=== PATIENT | female | born 1980 | race Caucasian/White ===

== ENCOUNTER 2020-10-15 10:05 | Emergency (ER) | payer OTHER, SELFPAY ==
[2020-10-15 10:06] VITALS: BP 136/81; PULSE 86; RESP 16; TEMP 36.8; O2SAT 98; BMI 39.6
--- NOTE | 2020-10-15 10:30 | VDLE_ITS ---
Reason For Study: Leg Swelling, Petechiae RIGHT LEFT GSV is normal. GSV is normal. CFV is compressible, spontaneous, phasic, CFV is compressible, spontaneous, phasic, competent and demonstrates normal competent, and demonstrates normal augmentation. augmentation. FV is compressible, spontaneous, phasic, FV is compressible, spontaneous, phasic, competent and demonstrates normal competent and demonstrates normal augmentation. augmentation. POP V is compressible, spontaneous, phasic, POP V is compressible, spontaneous, phasic, competent and demonstrates normal competent and demonstrates normal augmentation. augmentation. T/P Trunk is compressible. T/P Trunk is compressible. PTV is compressible. PTV is compressible. RT PerV is compressible. LT PerV is compressible. Procedure Exam performed portable in ED. This is a venous duplex using B-mode, color flow and spectral Doppler. A preliminary report was called and/or faxed to Dr. Powell. VL/Venous Duplex US - Ozzie Extrem Interpretation Summary No evidence for acute deep venous thrombosis bilateral lower extremities with p atent and compressible bilateral great saphenous veins. Ordering Physician: Ferny Powell Referring Physician: Nicanor Cannon Performed By: Janie Calderon RDCS, RVT
--- NOTE | 2020-10-15 10:37 | EDS_ITS ---
HPI History of Present Illness Chief Complaint: Rash Informant: patient Narrative Narrative: Patient is a 40-year-old previously healthy female who presents to the emergency department for painful rash to bilateral lower extremities. She states that her symptoms initially started yesterday whenever she developed hives of her arms and legs. She did going to an outside emergency department and was diagnosed with anaphylaxis as she felt her throat was swelling. She was given epinephrine and placed on prednisone. Her symptoms had completely resolved prior to being discharged from the hospital. This morning whenever she woke up she noticed the red bumps going up her legs. They are tender to the touch. She has never had this before. She feels like both of her legs are swollen and is difficult to put her shoes on. She denies any throat swelling now. No chest pain or shortness of breath. No abdominal pain. No change in bowel movements. No urinary symptoms. She was diagnosed with a UTI yesterday and put on Macrobid. She took her second dose this morning. She also took her prednisone this morning. Patient denies any headache or stiff neck. No back pain. She denies any new exposures. She did previously have poison abundio on the leg approximately 1 week ago. PFSH [facility] Home Medications bupropion HCl 150 mg PO BID 08/23/16 [History Last Taken Unknown] topiramate 25 mg DAILY 08/23/16 [History Last Taken Unknown] Allergy/AdvReac Type Severity Reaction Status Date / Time No Known Allergies Allergy Verified 10/15/20 10:09 Surgical History (Updated 10/15/20 @ 10:49 by Taisha Reeves) History of appendectomy History of tonsillectomy History of tonsillectomy and adenoidectomy Social History Smoking Status: Never smoker ROS ROS ED Constitutional Constitutional ED: Denies chills or fever(s) Eyes Eyes: Denies change in vision ENT ENT ED: Denies epistaxis or rhinorrhea Cardiovascular Cardiovascular: Denies chest pain or palpitations Respiratory/Chest Respiratory/Chest: Denies cough, dyspnea or dyspnea on exertion Gastrointestinal Gastrointestinal: Denies abdominal pain, diarrhea, nausea or vomiting Genitourinary Genitourinary ED: Denies dysuria, hematuria or urinary frequency Musculoskeletal Musculoskeletal: Denies back pain or neck pain Integumentary Reports rash Neurologic Neurologic: Denies dizziness, headache(s) or weakness EXAM Physical Exam Const Vital Signs: 10/15/20 10:06 Temperature 98.3 F Temperature Source Temporal Pulse Rate 86 Respiratory Rate 16 Blood Pressure 136/81 H Blood Pressure Mean 99 Pulse Ox 98 Oxygen Delivery Method Room Air Positive well nourished and well developed General Appearance ED: well developed and NAD HEENT Reports normocephalic, head/scalp atraumatic and moist mucous membranes Eyes PERRL and EOMs intact bilaterally Neck supple General: Negative for tenderness Chest Wall inspection of chest normal Resp normal respiratory effort and clear to auscultation bilaterally Auscultation: Negative for rales, rhonchi or wheezes Cardio regular rate, regular rhythm and no murmurs GI normal to inspection, nondistended, normoactive bowel sounds and non-tender Palpation: soft; Negative for guarding or rebound tenderness present Back/Spine no CVA tenderness Extremity normal to inspection General Extremety ED: Negative for edema or tenderness General Extremity: Negative for edema Neuro oriented x3, CN's II-XII intact bilaterally and no sensory deficits noted Sensorium / Orientation: alert Motor Exam: strength 5/5 throughout Psych mental status grossly normal Skin Skin Narrative: There is erythematous, macular rash extending up the legs. This does look like petechiae. Is nonblanchable. Is tender to the touch. It does involve the arches of the feet bilaterally but not the soles of the feet. The rash does not extend past her pelvis. No oral mucous membrane involvement. MDM MDM MDM Narrative Medical decision making narrative: Patient presents to the ED for painful rash of lower extremities bilaterally. She was diagnosed with anaphylaxis yesterday as she had hives. She was treated with epinephrine yesterday and placed on prednisone. On arrival to the emergency department vital signs within normal limits. She is in no acute distress. Will check basic lab work along with ultrasounds of the lower extremities. Patient's lab work did come back with an elevated white blood cell count but she is currently on a steroid and this likely explains it. Her CRP was minimally elevated and her ESR is within normal limits. Her platelets are within normal limits. She otherwise has remained stable throughout ED stay. No progression of the rash. Ultrasound not show any evidence of clot. 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 She is to continue on her prednisone. I did give her vascular referral. Return precautions are reviewed with her including any developing systemic symptoms, worsening of the rash. This time of low concern for sepsis, meningitis. At this time she is discharged in stable condition. All questions were answered. Lab Data Labs: Laboratory Results - last 24 hr 10/15/20 10/15/20 10/15/20 10:40 10:45 10:45 WBC 18.9 H RBC 4.81 Hgb 14.5 Hct 44.2 MCV 91.9 MCH 30.1 MCHC 32.8 RDW Std Deviation 42.5 RDW Coeff of Allie 12.6 Plt Count 416 MPV 9.6 Immature Gran % (Auto) 0.800 Neut % (Auto) 85.3 H Lymph % (Auto) 6.6 L Adams % (Auto) 3.1 Eos % (Auto) 4.0 Baso % (Auto) 0.2 Absolute Neuts (auto) 16.1 H Absolute Lymphs (auto) 1.24 Nucleated RBC % 0 Differential Comment SCANNED Platelet Estimate ADEQUATE Plt Morphology Comment LARGE ESR 6 Sodium 137 Potassium 3.9 Chloride 107 Carbon Dioxide 24.0 Anion Gap 6 BUN 17 Creatinine 0.85 Estim Creat Clear Calc 63.83 Est GFR (MDRD) Af Amer 95 Est GFR (MDRD) Non-Af 79 BUN/Creatinine Ratio 20.0 Glucose 118 H Calcium 9.3 Total Bilirubin 0.20 AST 14 L ALT 19 Alkaline Phosphatase 83 Total Creatine Kinase C-React Prot Ext Range 7.02 H Total Protein 7.7 Albumin 3.9 Globulin 3.8 Albumin/Globulin Ratio 1.0 Urine Color Yellow Urine Clarity Cloudy Urine pH 5.0 Ur Specific [place] 1.015 Urine Protein Negative Urine Glucose (UA) Normal Urine Ketones 5 H Urine Occult Blood Negative Urine Nitrite Negative Urine Bilirubin Negative Urine Urobilinogen Normal Ur Leukocyte Esterase 500 H Urine RBC 0 SEEN Urine WBC 0-5 SEEN Ur Squamous Epith Cells 5-10 SEEN Urine Bacteria 1+ Urine Mucus 0 SEEN 10/15/20 10:45 WBC RBC Hgb Hct MCV MCH MCHC RDW Std Deviation RDW Coeff of Allie Plt Count MPV Immature Gran % (Auto) Neut % (Auto) Lymph % (Auto) Adams % (Auto) Eos % (Auto) Baso % (Auto) Absolute Neuts (auto) Absolute Lymphs (auto) Nucleated RBC % Differential Comment Platelet Estimate Plt Morphology Comment ESR Sodium Potassium Chloride Carbon Dioxide Anion Gap BUN Creatinine Estim Creat Clear Calc Est GFR (MDRD) Af Amer Est GFR (MDRD) Non-Af BUN/Creatinine Ratio Glucose Calcium Total Bilirubin AST ALT Alkaline Phosphatase Total Creatine Kinase 84 C-React Prot Ext Range Total Protein Albumin Globulin Albumin/Globulin Ratio Urine Color Urine Clarity Urine pH Ur Specific [place] Urine Protein Urine Glucose (UA) Urine Ketones Urine Occult Blood Urine Nitrite Urine Bilirubin Urine Urobilinogen Ur Leukocyte Esterase Urine RBC Urine WBC Ur Squamous Epith Cells Urine Bacteria Urine Mucus Discharge Plan Triage Chief Complaint: Rash ED Provider: Ferny Powell Dx/Rx/DC Orders Clinical Impression: Rash Instructions: Understanding Vasculitis Prescriptions: No Action topiramate 25 MG tablet 25 mg DAILY RF: 0 bupropion HCl 100 MG tablet 150 mg PO BID RF: 0 Primary Care Provider: Durga Cannon Referrals: Pawan Mccann MD [STAFF PHYSICIAN] - 2 Days Durga Cannon MD [Primary Care Provider] - Disposition Disposition: Home, Self Care Discharge Date/Time: 10/15/20 12:47
[2020-10-15 10:54] LABS: Mucous, Urine 0 SEEN /hpf (<or=2+); Red Blood Cells-Urine 0 SEEN /hpf (0-5)
[2020-10-15 10:59] LABS: Color, Urine Yellow (Yellow); Glucose, Dipstick Normal (Normal); Ketone-Dipstick 5 mg/dl (Negative); Leukocyte Esterase-Dipstick 500 /ul (Negative); Nitrite-Dipstick Negative (Negative); Occult Blood-Urine Negative /ul (Negative); Protein-Dipstick Negative (Negative); Specific Gravity, Urine 1.015 (1.002-1.030); Urine Bilirubin Dipstick Negative (Negative); Urine Clarity Cloudy (Clear); Urine Urobilinogen Normal (Normal)
[2020-10-15 11:04] LABS: Absolute Lymphocyte Count 1.24 X10^3/uL (0.83-4.51); Absolute Neutrophil Count 16.1 X10^3/uL (2.0-7.7); Basophil# 0.03 X10^3/uL; Basophil% 0.2 % (0-1); Eosinophil# 0.76 X10^3/uL; Hematocrit 44.2 % (37-47); Hemoglobin 14.5 g/dL (12.0-15.0); Lymphocyte # 1.24 X10^3/ul (0.83-4.51); Lymphocyte % 6.6 % (19-41); Mean Corp Hgb Conc 32.8 g/dL (32-36); Mean Corpuscular Hgb 30.1 pg (27.0-32.0); Mean Corpuscular Volume 91.9 fL (81-99); Mean Platelet Vol. 9.6 fl (6.2-12.0); Monocyte# 0.58 X10^3/uL; Monocyte% 3.1 % (0-10); NRBC Flagged by Analyzer 0 % (0-5); Neutrophil # 16.13 X10^3/uL (2.7-7.7); Neutrophil % 85.3 % (47-70); POSITIVE MORPHOLOGY YES; Platelet Count 416 K/mm3 (150-450); RBC Distribution Width CV 12.6 % (11.6-14.6); RBC Distribution Width SD 42.5 fl (35.1-43.9); Red Blood Count 4.81 M/mm3 (4.2-5.4); White Blood Count 18.9 K/mm3 (4.4-11.0)
[2020-10-15 11:05] LABS: Bacteria 1+ /hpf (None Seen); Squamous Epithelial Cells - UA 5-10 SEEN /hpf (5-10); White Blood Cells 0-5 SEEN /hpf (0-5)
[2020-10-15 11:06] LABS: Differential Indicated SCAN CRITERIA MET
[2020-10-15 11:10] LABS: AST(SGOT) 14 U/L (15-37); Alanine Aminotransfer ALT/SGPT 19 U/L (13-56); Albumin, Serum 3.9 g/dL (3.2-5.0); Alkaline Phosphatase 83 U/L (45-117); Anion Gap 6 (5-15); BUN 17 mg/dL (7-18); CRP 7.02 mg/L (0.0-3.0); Calcium,Total 9.3 mg/dL (8.5-10.1); Chloride 107 mmol/L (98-107); Creatinine, Serum 0.85 mg/dL (0.55-1.02); EST Glomerular Filtration Rate 79 mL/min (>60); Est Glom Filt Rate - Afr Amer 95 mL/min (>60); Estimated Creatinine Clearance 63.83 ml/min; Globulin 3.8 g/dL (2.2-4.2); Glucose 118 mg/dL (74-106); Potassium 3.9 mmol/L (3.5-5.1); Protein, Total 7.7 g/dL (6.4-8.2); Sodium Level 137 mmol/L (136-145)
[2020-10-15 11:12] LABS: Erythrocyte Sedimentation Rate 6 mm/hr (0-30)
[2020-10-15 11:20] LABS: CPK Total, Creatine Kinase 84 U/L (26-192)
[2020-10-15 11:26] LABS: Platelet Estimate ADEQUATE (ADEQ); Platelet Morphology LARGE
[2020-10-15 11:27] LABS: Differential Comment SCANNED
== END 2020-10-15 12:47 | disposition home or self-care (01) ==
PROVIDERS: Emergency Provider Emergency Medicine; PCP Family Medicine
DX: R21 Rash and other nonspecific skin eruption (principal); M79.604 Pain in right leg; M79.605 Pain in left leg; Z79.899 Other long term (current) drug therapy
CPT/HCPCS: 80053; 81001; 82550; 85025; 85652; 86140; 93970; 99282

== ENCOUNTER 2020-11-12 19:12 | Emergency (ER) | payer OTHER, SELFPAY ==
[2020-11-12 19:14] VITALS: BP 136/79; PULSE 109; RESP 16; TEMP 36.6; O2SAT 100; BMI 40.6
--- NOTE | 2020-11-12 20:00 | ED.VIS.BACK ---
HPI History of Present Illness Chief Complaint: Back Informant: patient Narrative Narrative: Patient has left lower back pain radiating down the buttock and a little bit down her leg. She occasionally has a little mild tingling feeling in her left small toe. Yesterday morning she jumped out of her truck and got immediate sharp back pain. It then got a little bit better. But as she started working the pain slowly increased. It sore to move or twist. She has no bowel or bladder dysfunction. She has no fevers chills or recent infections. She was treated with a nonspecific vasculitis with steroids about a month ago. She is not currently on them. She has no history of back surgeries. Staying still makes her symptoms better. Motion twisting or palpation makes it worse. PFSH PFSH Home Medications bupropion HCl 150 mg PO BID 08/23/16 [History Last Taken Unknown] topiramate 25 mg DAILY 08/23/16 [History Last Taken Unknown] oxycodone-acetaminophen [Percocet] 1 tab PO Q6H PRN 3 Days #10 tab 11/12/20 [Rx Last Taken Unknown] prednisone 60 mg PO DAILY #15 tab 11/12/20 [Rx Last Taken Unknown] Allergy/AdvReac Type Severity Reaction Status Date / Time No Known Allergies Allergy Verified 11/12/20 19:14 Surgical History History of appendectomy History of tonsillectomy History of tonsillectomy and adenoidectomy Social History Smoking Status: Never smoker ROS ROS ED Constitutional Constitutional ED: Denies chills, fever(s) or sweats Eyes Eyes: Denies blurry vision Cardiovascular Cardiovascular: Denies chest pain or palpitations Respiratory/Chest Respiratory/Chest: Denies dyspnea or sputum Gastrointestinal Gastrointestinal: Reports other Details: No incontinence. ; Denies abdominal pain, constipation, diarrhea, melena, nausea or vomiting Genitourinary Genitourinary ED: Denies dysuria, hematuria or urinary frequency Musculoskeletal Musculoskeletal: Reports back pain; Denies arthralgias, myalgias or neck pain Integumentary Denies rash Neurologic Neurologic: Reports paresthesias; Denies headache(s) or weakness Endocrine Endocrinology: Denies polydipsia or polyuria Hematologic/Lymphatic Hematologic/Lymphatic: Denies easy bleeding or easy bruising EXAM Physical Exam Const Vital Signs: 11/12/20 19:14 Temperature 98 F Temperature Source Temporal Pulse Rate 109 H Respiratory Rate 16 Blood Pressure 136/79 H Blood Pressure Mean 98 Pulse Ox 100 Oxygen Delivery Method Room Air Positive well nourished and well developed General Appearance ED: well developed and NAD HEENT Negative for trauma Eyes EOMs intact bilaterally Resp normal respiratory effort and clear to auscultation bilaterally Cardio regular rate and regular rhythm GI normal to inspection, nondistended, normoactive bowel sounds, soft to palpation and non-tender Back/Spine normal to inspection Back/Spine Narrative: Patient does not have tenderness in the actual back. But when you get the SI joint and sciatic notch. She has clear tenderness on the left. No swelling down the legs. Her strength is still intact. Reflexes are still intact. She states the sensation of her small toes feels different but it is still intact. Extremity normal to inspection and no clubbing, cyanosis or edema General Extremety ED: Negative for edema or tenderness General Extremity: Negative for edema Neuro oriented x3 Neuro Narrative: See above Sensorium / Orientation: alert Psych mental status grossly normal Skin no rashes or lesions noted and no wounds MDM MDM MDM Narrative Medical decision making narrative: Patient's exam and history is consistent with an S1 nerve root compression on the left side. But she has no bowel or bladder dysfunction. She has no weakness. Conservative treatment is still appropriate initially. Although this started when she jumped out of her truck and landed on her feet, the pain then resolved. It came back during the day when she was working. I do not think x-rays are going to show because of this. I will get her on meds for pain. I will also use a short course of steroids. She has been using Flexeril and Motrin that she has at home and is not helping. I did online prescribing report. She has a single prescription for narcotic cough medicine back in 2019. We discussed reasons to return that would include weakness, worsening pain, bowel or bladder dysfunction, rashes or any other concerns. Discharge Plan Triage Chief Complaint: Back ED Provider: Rakan Gold Dx/Rx/DC Orders Clinical Impression: Lumbosacral radiculopathy at S1 Instructions: ED Sciatica Prescriptions: New oxycodone-acetaminophen [Percocet] 5-325 mg tablet 1 tab PO Q6H PRN (Reason: pain) 3 Days Qty: 10 RF: 0 prednisone 20 mg tablet 60 mg PO DAILY Qty: 15 RF: 0 No Action topiramate 25 MG tablet 25 mg DAILY RF: 0 bupropion HCl 100 MG tablet 150 mg PO BID RF: 0 Primary Care Provider: Durga Cannon Referrals: Durga Cannon MD [Primary Care Provider] - 3-5 Days Disposition Disposition: Home, Self Care
[2020-11-12] MEDS: Ketorolac 30 MG/ML Syringe IM (20:10)
== END 2020-11-12 20:36 | disposition home or self-care (01) ==
PROVIDERS: Emergency Provider Emergency Medicine; PCP Family Medicine
DX: M54.17 Radiculopathy, lumbosacral region (principal)
CPT/HCPCS: 96372; 99282

== ENCOUNTER 2021-07-01 12:33 | Emergency (ER) | payer MEDICAID, SELFPAY ==
[2021-07-01 12:34] VITALS: BP 135/88; PULSE 88; RESP 16; TEMP 36.2; O2SAT 99; BMI 41.8
--- NOTE | 2021-07-01 12:43 | ED.VIS.BACK ---
HPI History of Present Illness Chief Complaint: Back Informant: patient Onset/Context/Timing Onset: Yesterday Context: Sudden Onset Injury: fall (Standing position as she was getting out of bed) Timing: Continuous Quality: Sharp Location: Lumbar, Buttock and Left Leg Current Severity: Mild Maximum Severity: Severe Worsened by: improves with Movement, Ambulation, Bending and Lifting Relieved by: Nothing Associated Symptoms Associated Symptoms: Numbness (Entire left lower extremity), Radiation to Left Leg and - (She denies foot drop. Denies buckling of her knees.); Negative for Abdominal Pain, Dysuria, Unable to Ambulate, Unable to Transfer, Urinary Retention, Urinary Incontinence, Constipation and Fecal Incontinence Narrative Narrative: Patient presents because of back pain and numbness of the left lower extremity status post fall. She has history of spinal stenosis. She fell getting a bed yesterday. She has pain that is much worse than normal. Nothing has helped the pain. Movement and different activities make it worse. She denies bowel bladder dysfunction. She denies saddle paresthesia or anesthesia. She complains of pain radiating lateral aspect of the left lower extremity to the knee. This is not in a dermatomal distribution. She denies fever, chills night sweats. She has had no recent procedures of any type. She states she contacted her physician who recommended she come to the emergency part Prior similar symptoms: No Recent Illness/Hospitalization: No PFSH [facility] Medical History (Updated 07/01/21 @ 13:[address] Zachery Lloyd MD) Spinal stenosis Home Medications NK 11/12/20 [History Last Taken Unknown] hydrocodone-acetaminophen 1 tab PO Q6H PRN PRN 3 Days #10 tablet 07/01/21 [Rx Last Taken Unknown] Allergy/AdvReac Type Severity Reaction Status Date / Time latex Allergy Hives Verified 07/01/21 12:36 nicotine [From Nicoderm CQ] Allergy Hives Verified 07/01/21 12:36 Surgical History History of appendectomy History of tonsillectomy History of tonsillectomy and adenoidectomy Social History (Updated 07/01/21 @ 12:[address] Zachery Lloyd MD) household members: spouse Smoking Status: Former smoker substance use type: does not use ROS ROS ED Constitutional Constitutional ED: Denies chills, fever(s), subjective, sweats or weight loss Eyes Eyes: Denies blurry vision, change in vision or diplopia ENT ENT ED: Denies ear pain, rhinorrhea or sore throat Cardiovascular Cardiovascular: Denies chest pain or palpitations Respiratory/Chest Respiratory/Chest: Denies dyspnea or dyspnea on exertion Gastrointestinal Gastrointestinal: Denies abdominal pain, constipation, nausea or vomiting Genitourinary Genitourinary ED: Denies dysuria, hematuria or urinary frequency Musculoskeletal Musculoskeletal: Reports back pain; Denies arthralgias, myalgias or neck pain Integumentary Denies rash Neurologic Neurologic: Reports paresthesias; Denies headache(s) or weakness Endocrine Endocrinology: Denies polydipsia, polyphagia or polyuria Hematologic/Lymphatic Hematologic/Lymphatic: Denies easy bleeding or easy bruising EXAM Physical Exam Const Vital Signs: 07/01/21 12:34 Temperature 97.2 F L Temperature Source Temporal Pulse Rate 88 Respiratory Rate 16 Blood Pressure 135/88 H Blood Pressure Mean 103 Pulse Ox 99 Positive well nourished, well developed and obese General Appearance ED: well developed; Negative for NAD or pallor Nutritional Appearance: obese HEENT Reports TM's clear and moist mucous membranes Negative for trauma or tenderness Tympanic Membrane ED: Yes TM's clear Eyes PERRL and EOMs intact bilaterally General Eye ED: Negative for pale conjunctiva or scleral icterus Neck no lymphadenopathy, supple and no JVD Resp normal respiratory effort and clear to auscultation bilaterally Cardio regular rate, regular rhythm, S1 normal heart sound, S2 normal heart sound and no murmurs GI normal to inspection, nondistended, normoactive bowel sounds, soft to palpation and non-tender GI Narrative: There is no pain no patient of the pelvis. Back/Spine normal to inspection Back/Spine Narrative: There is pain no patient over the L5 spinous process. Straight leg test on the left elicited pain left lower back at 15 degrees. Straight leg test on the right was negative. EHL is intact. Normal sensation over L4-5 dermatome as well as L3 and perianal region. DP and PT pulse are palpable. General Back: Negative for CVA tenderness Cervical Spine: Negative for cervical spine tenderness and Negative for paracervical muscle tenderness Thoracic Spine / Upper Back: Negative for paraspinal muscle tenderness Lumbar Spine / Lower Back: straight leg raise negative bilaterally Extremity normal to inspection and no clubbing, cyanosis or edema General Extremety ED: Negative for edema or tenderness General Extremity: Negative for edema Neuro Deep Tendon Reflexes: Rt Patellar (L4): 3+, Lt Patellar (L4): 3+, Rt Ankle (S1): 3+ and Lt Ankle (S1): 3+ Deep Tendon Reflexes Back: Rt Patellar (L4): 3+, Lt Patellar (L4): 3+, Rt Ankle (S1): 3+ and Lt Ankle (S1): 3+ Plantar Reflex: Downgoing: bilateral Psych mental status grossly normal Skin no rashes or lesions noted and no wounds General Skin Exam: Negative for jaundice or pallor MDM MDM MDM Narrative Medical decision making narrative: Since there is pain of palpation spinous process of L5 after falling patient had continuous pain since fall will obtain LS x-rays to evaluate for fracture. Patient was medicated with Zofran and morphine. Based on history and physical findings presently there is no concern for herniated disc as the cause of her pain. History and physical is not consistent with spinal stenosis as the etiology either. Patient was observed walking back from the restroom. She was not grimacing or in obvious discomfort. Plan is to discharge to home with appropriate home-going instructions. Radiography X-Ray: LS SPine (2 views were obtained. There is minimal degenerative disease noted. There is no evidence of fracture, spondylolisthesis or spondylolisthesis.) and Read by ED Physician ([id number]) Discharge Plan Triage Chief Complaint: Back ED Provider: Zachery Lloyd Dx/Rx/DC Orders Clinical Impression: Contusion of lower back and pelvis, initial encounter, Injury due to fall Instructions: ED Back Contusion Prescriptions: New hydrocodone-acetaminophen [hydrocodone-acetaminophen] 1 TABLET tablet 1 tab PO Q6H PRN PRN (Reason: Pain) 3 Days Qty: 10 RF: 0 No Action NK RF: 0 Primary Care Provider: Durga Cannon Referrals: Durga Cannon MD [Primary Care Provider] - 3-5 Days if not improving Disposition Disposition: Home, Self Care
--- NOTE | 2021-07-01 12:47 | RAD_ITS ---
STUDY: X-RAY - LUMBAR SPINE REASON FOR EXAM: Female, 41 years old. Injury/Pain TECHNIQUE: 2 view(s) of the lumbar spine were obtained. COMPARISON: None FINDINGS: Normal lumbar lordosis. There is no substantial scoliosis. There is a normal alignment of the vertebrae. There is multilevel endplate spondylosis of the lumbar vertebrae. Normal disc space heights. The soft tissue structures are unremarkable. RAD/Lumbar Spine 2 or 3 Views IMPRESSION: 1. No acute fracture or subluxation. 2. Mild diffuse degenerative disc disease. Electronically Signed: Papo Smith MD at 13:17 EST ,
[2021-07-01] MEDS: Morphine 4 MG/ML Syringe IV (13:01)
[2021-07-01] MEDS: Ondansetron 4 MG/2 ML Vial IV (13:01)
== END 2021-07-01 13:34 | disposition home or self-care (01) ==
PROVIDERS: Emergency Provider Emergency Medicine; PCP Family Medicine; Visit Provider Emergency Medicine
DX: S30.0XXA Contusion of lower back and pelvis, initial encounter (principal); E66.9 Obesity, unspecified; Z87.891 Personal history of nicotine dependence; W19.XXXA Unspecified fall, initial encounter
CPT/HCPCS: 72100; 96374; 96375; 99282; A4216; J2405

== ENCOUNTER → 2021-08-31 | Outpatient (CLI) | payer MEDICAID, SELFPAY ==
[2021-09-06 18:19] LABS: HPV Reflexed? NOT INDICATED
== END | disposition home or self-care (01) ==
LOC: LABSPEC 13:44
PROVIDERS: PCP Family Medicine; Visit Provider Obstetrics & Gynecology
DX: Z12.4 Encounter for screening for malignant neoplasm of cervix (principal)
CPT/HCPCS: 88175; G0145

== ENCOUNTER 2022-12-13 12:18 | Emergency (ER) | payer MEDICAID, SELFPAY ==
[2022-12-13 12:19] VITALS: BP 129/77; PULSE 90; RESP 18; TEMP 37.2; O2SAT 100; BMI 40.4
--- NOTE | 2022-12-13 13:32 | EX.ED.DYSGE1 ---
HPI History of Present Illness Chief Complaint: Chest Other Informant: patient Onset/Context/Timing Onset: Days (4) Context: Gradual Onset Timing: Continuous Quality: Sharp Location: Chest and back Worsened by: Cough, deep breathing Relieved by: Nothing Narrative Narrative: Patient presents with cough and chest pain that has been getting worse over the last 4 days. Patient states she tested negative for COVID-19 recently. Patient states her cough has been persistent. Patient states she has some sharp pain in her chest and back. Patient states her pain is worse with deep breathing and with coughing. Patient states nothing seems to help with the pain. Patient denies any nausea or vomiting. Patient denies any fevers or chills. [facility] Medical History (Updated 12/13/22 @ 15:[address] Juan Gongora DO) Spinal stenosis Home Medications hydrocodone-acetaminophen 5-325mg 5mg-325mg 1 tab PO Q6H PRN PRN Pain 3 days #10 TABLETS 12/13/22 [Rx Last Taken Unknown] Allergy/AdvReac Type Severity Reaction Status Date / Time latex Allergy Hives Verified 12/13/22 12:19 nicotine [From Nicoderm CQ] Allergy Hives Verified 12/13/22 12:19 Surgical History (Updated 12/13/22 @ 13:[address] Juan Gongora DO) History of appendectomy History of tonsillectomy and adenoidectomy Hx of tubal ligation Social History household members: spouse Smoking Status: Former smoker substance use type: does not use ROS ROS ED Constitutional Constitutional ED: Reports fever(s) and subjective; Denies chills Eyes Eyes: Denies blurry vision or change in vision ENT ENT ED: Reports sore throat; Denies rhinorrhea Cardiovascular Cardiovascular: Reports chest pain; Denies palpitations Respiratory/Chest Respiratory/Chest: Reports cough and dyspnea Gastrointestinal Gastrointestinal: Denies nausea or vomiting Genitourinary Genitourinary ED: Denies dysuria or hematuria Musculoskeletal Musculoskeletal: Reports back pain; Denies neck pain Integumentary Denies abscess or rash Neurologic Neurologic: Reports headache(s); Denies weakness Allergic/Immunologic Allergic/Immunologic ED: Denies mouth swelling or urticaria EXAM Physical Exam Const Vital Signs: 12/13/22 12:19 12/13/22 12:44 Temperature 98.9 F Temperature Source Temporal Pulse Rate 90 Respiratory Rate 18 Respiratory Effort Normal Non-Labored Blood Pressure 129/77 H Blood Pressure Mean 94 Pulse Ox 100 Positive well nourished and well developed General Appearance ED: well developed and NAD HEENT Reports moist mucous membranes Neck supple and no JVD Chest Wall Chest Narrative: There is reproducible tenderness over the sternum and anterior chest. There is no bony crepitance or step-off. Resp normal respiratory effort and clear to auscultation bilaterally Cardio regular rate and regular rhythm GI normal to inspection, nondistended, normoactive bowel sounds and non-tender Palpation: soft Extremity normal to inspection General Extremety ED: Negative for edema or tenderness General Extremity: Negative for edema Neuro oriented x3, CN's II-XII intact bilaterally and no sensory deficits noted Sensorium / Orientation: alert Motor Exam: strength 5/5 throughout Psych mental status grossly normal MDM MDM MDM Narrative Medical decision making narrative: Differential diagnosis includes bronchitis, pneumonia, pneumothorax, musculoskeletal pain, and viral illness. Chest x-ray will be obtained to assess for pneumonia and pneumothorax. Radiography Chest X-Ray - ED: 2 View, Read by ED Physician, Read by Radiologist and No Acute Disease Diagnostic Testing: Clinical Impression(s) from Imaging Studies Chest X-Ray 12/13/22 13:45 IMPRESSION: No radiographic evidence of acute cardiopulmonary disease. Electronically Signed: Ary Angulo MD at 13:59 EDT , PA and lateral chest x-ray was obtained. There are 2 views. On my independent interpretation, lung sen are clear. There is normal cardiac silhouette. Bony thorax is normal. There is no acute process noted. Radiologist also interpreted the x-ray and agrees. Treatment and Re-Evaluation :: Patient was advised of her findings. Patient is feeling better on reevaluation. Patient was given a prescription for a short course of [place] to take for pain and/or cough. Patient was instructed to follow-up with her primary care physician in 5 to 7 days. Patient understood and was agreeable with the plan. All questions were answered. Discharge Plan Triage Chief Complaint: Chest Other ED Provider: Juan Gongora Dx/Rx/DC Orders Clinical Impression: Viral upper respiratory tract infection with cough, Musculoskeletal chest pain Instructions: ED URI, Viral, No Abx (Adult) Prescriptions: Continued hydrocodone-acetaminophen 1 TABLET tablet 1 tab PO Q6H PRN PRN (Reason: Pain) 3 Days Qty: 10 0RF Primary Care Provider: Durga Cannon Referrals: Durga Cannon MD [Primary Care Provider] - 5-7 Days Disposition Disposition: Home, Self Care
--- NOTE | 2022-12-13 13:45 | RAD_ITS ---
INDICATION: Cough EXAMINATION/TECHNIQUE: X-RAY - XR Chest 2 Views COMPARISON: Prior study dated: August 23, 2016 FINDINGS: LINES/DEVICES: None. LUNGS: No new consolidation, edema or effusion. No pneumothorax. MEDIASTINUM AND CARDIOVASCULAR STRUCTURES: Cardiac silhouette not enlarged. Central airways and mediastinal contour are unremarkable. BONES AND SOFT TISSUES: Unremarkable. RAD/Chest PA and Lateral IMPRESSION: No radiographic evidence of acute cardiopulmonary disease. Electronically Signed: Ary Angulo MD at 13:59 EDT ,
== END 2022-12-13 15:26 | disposition home or self-care (01) ==
PROVIDERS: Emergency Provider Emergency Medicine; PCP Family Medicine; Visit Provider Emergency Medicine
DX: J06.9 Acute upper respiratory infection, unspecified (principal); R07.89 Other chest pain; Z87.891 Personal history of nicotine dependence
CPT/HCPCS: 71046; 99282

== ENCOUNTER 2023-09-04 17:13 | Emergency (ER) | payer MEDICAID, SELFPAY ==
[2023-09-04 17:14] VITALS: BP 145/89; PULSE 91; RESP 18; TEMP 36.6; O2SAT 100; BMI 39.9
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
[2023-09-04 18:17] LABS: Absolute Lymphocyte Count 2.39 X10^3/uL (0.83-4.51); Absolute Neutrophil Count 9.8 X10^3/uL (2.0-7.7); Basophil# 0.07 X10^3/uL; Basophil% 0.5 % (0-1); Eosinophil# 0.06 X10^3/uL; Eosinophils% 0.5 % (0-5); Hematocrit 36.9 % (37-47); Hemoglobin 12.2 g/dL (12.0-15.0); Lymphocyte # 2.39 X10^3/ul (0.83-4.51); Lymphocyte % 18.5 % (19-41); Mean Corp Hgb Conc 33.1 g/dL (32-36); Mean Corpuscular Hgb 29.3 pg (27.0-32.0); Mean Corpuscular Volume 88.7 fL (81-99); Mean Platelet Vol. 10.4 fl (6.2-12.0); Monocyte# 0.58 X10^3/uL; Monocyte% 4.5 % (0-10); NRBC Flagged by Analyzer 0 % (0-5); Neutrophil # 9.77 X10^3/uL (2.7-7.7); Neutrophil % 75.5 % (47-70); Platelet Count 423 K/mm3 (150-450); RBC Distribution Width CV 12.2 % (11.6-14.6); RBC Distribution Width SD 39.5 fl (35.1-43.9); Red Blood Count 4.16 M/mm3 (4.2-5.4); White Blood Count 12.9 K/mm3 (4.4-11.0)
[2023-09-04] MEDS: Acetaminophen 500 MG Tablet 1000 MG PO (18:29)
[2023-09-04 18:33] LABS: Internal QC Validated? YES +Cl - CLEAR BKGD; Pregnancy, Serum, hCG Quali. NEGATIVE Negative
[2023-09-04 18:34] LABS: Alcohol, Blood (Medical)-Serum < 3.0 mg/dL
[2023-09-04 18:35] LABS: Anion Gap 6 (5-15); BUN 11 mg/dL (7-18); BUN/Creat Ratio 15.3 RATIO (10-20); Chloride 109 mmol/L (98-107); Creatinine, Serum 0.72 mg/dL (0.55-1.02); EST Glomerular Filtration Rate 94 mL/min (>60); Est Glom Filt Rate - Afr Amer 114 mL/min (>60); Glucose 107 mg/dL (74-106); Potassium 3.3 mmol/L (3.5-5.1); Sodium Level 139 mmol/L (136-145)
[2023-09-04] MEDS: Ondansetron ODT 4 MG Tablet PO (18:46)
[2023-09-04 18:51] LABS: Amphetamine Urine VISTA NEGATIVE (<1000 ng/mL); Barbiturate Urine VISTA NEGATIVE (< 200 ng/mL); Benzodiazepine Urine VISTA NEGATIVE (< 200 ng/mL); Cocaine Urine VISTA NEGATIVE (< 300 ng/mL); Ecstacy Urine VISTA NEGATIVE (< 500 ng/mL); Methadone Urine VISTA NEGATIVE (< 300 ng/mL); PCP Urine VISTA NEGATIVE (< 25 ng/mL); THC Urine VISTA POSITIVE (< 50 ng/mL); Vista UDS pH Range 5
[2023-09-04 23:11] VITALS: RESP 18
== END 2023-09-04 23:13 | disposition home or self-care (01) ==
LOC: ED 17:55
PROVIDERS: Emergency Provider Emergency Medicine; PCP Family Medicine; Visit Provider Emergency Medicine
DX: F32.A Depression, unspecified (principal); R45.851 Suicidal ideations; Z79.899 Other long term (current) drug therapy; Z79.3 Long term (current) use of hormonal contraceptives; Z98.51 Tubal ligation status; Z90.49 Acquired absence of other specified parts of digestive tract; F17.290 Nicotine dependence, other tobacco product, uncomplicated
CPT/HCPCS: 80048; 80307; 80320; 84703; 85025; 99285; G0480

== ENCOUNTER 2023-09-18 12:04 | Inpatient (IN) | payer MEDICAID, SELFPAY ==
[2023-09-18] VITALS (8 sets, daily range): BP systolic 110–151; BP diastolic 59–85; PULSE 59–89; RESP 14–18; TEMP 35.8–37; O2SAT 98–100; BMI 38.2; BMI 38.9
--- NOTE | 2023-09-18 12:30 | EDS_ITS ---
HPI History of Present Illness Chief Complaint: Nausea/Vomiting Informant: patient Narrative Narrative: 43-year-old female presenting to the emergency room with chief complaint of vomiting and abdominal pain. Patient states for the past 3 days she has been unable to tolerate p.o. fluids noting nausea and vomiting. She notes a bilateral and mid upper abdominal pain. This radiates towards her back. She notes a prior appendectomy and uterine ablation with tubal ligation. Patient denies any fevers but does note some occasional sweats. No diarrhea. Patient is a daily user of inhaled cannabis but states she has never been told she has had hyperemesis syndrome. She denies any known liver or pancreatic or gallbladder disease. She denies any known sick contacts. No changes in medications. Patient notes dry mouth and decreased urination. [facility] Medical History UTI (urinary tract infection) PCOS (polycystic ovarian syndrome) Spinal stenosis Home Medications ?Medication ?Instructions ?Recorded ?Last Taken ?Type drospiren-e.estrad-l.mefol 3 1 tab PO DAILY 09/04/23 Unknown History mg-0.02 mg-0.451 mg(24)/0.451 mg(4)tablet escitalopram oxalate 20 mg tablet 20 mg PO DAILY 09/04/23 Unknown History Allergy/AdvReac Type Severity Reaction Status Date / Time latex Allergy Hives Verified 09/18/23 12:06 nicotine (From Nicoderm CQ) Allergy Hives Verified 09/18/23 12:06 Surgical History Hx of tubal ligation History of appendectomy History of tonsillectomy and adenoidectomy Social History household members: spouse Smoking Status: Current every day smoker tobacco type: e-cigarettes substance use type: does not use ROS ROS ED Constitutional Constitutional ED: Reports sweats; Denies chills, fever(s) or weight loss Eyes Eyes: Denies change in vision or diplopia ENT ENT ED: Denies ear pain, rhinorrhea or sore throat Cardiovascular Cardiovascular: Denies chest pain, orthopnea, palpitations or racing heartbeat Respiratory/Chest Respiratory/Chest: Denies cough, dyspnea or orthopnea Gastrointestinal Gastrointestinal: Reports abdominal pain, constipation, nausea and vomiting; Denies diarrhea Genitourinary Genitourinary ED: Denies dysuria, hematuria or urinary frequency Musculoskeletal Musculoskeletal: Denies arthralgias or myalgias Integumentary Denies abscess or rash Neurologic Neurologic: Denies headache(s) or weakness Psychiatric Psychiatric: Denies anxiety, depression, suicidal ideation or suicidal thoughts Endocrine Endocrinology: Denies polydipsia, polyphagia or polyuria Allergic/Immunologic Allergic/Immunologic ED: Denies mouth swelling, tongue swelling or urticaria EXAM Physical Exam Const Vital Signs: 09/18/23 12:05 09/18/23 14:04 Temperature 96.5 F L Temperature Source Temporal Pulse Rate 85 78 Respiratory Rate 16 16 Blood Pressure 151/85 H 124/71 H Blood Pressure Mean 107 88 Pulse Ox 100 98 Oxygen Delivery Method Room Air Room Air Positive well nourished, well developed and obese General Appearance ED: well developed Nutritional Appearance: obese HEENT Reports normocephalic, head/scalp atraumatic and moist mucous membranes Eyes PERRL and EOMs intact bilaterally Neck no lymphadenopathy, supple and no JVD Resp normal respiratory effort and clear to auscultation bilaterally Cardio regular rate, regular rhythm and no murmurs GI GI Narrative: Abdomen is soft. Pain out of proportion to exam. Inspection: Negative for abdominal distention Auscultation: normoactive bowel sounds Palpation: soft and tender epigastric, LUQ and RUQ; Negative for guarding or rebound tenderness present Back/Spine no CVA tenderness and normal ROM Extremity normal to inspection General Extremety ED: Negative for edema General Extremity: Negative for edema Neuro oriented x3 and CN's II-XII intact bilaterally Sensorium / Orientation: alert Motor Exam: strength 5/5 throughout Psych mental status grossly normal Mood & Affect: Negative for depressed or tearful Skin no rashes or lesions noted and no wounds MDM MDM MDM Narrative Medical decision making narrative: Differential diagnosis includes but not limited to gastroenteritis cannabis hyperemesis syndrome pancreatitis choledocholithiasis acute cholecystitis hepatitis dehydration electrolyte dysfunction White count 11.2 with 73.7 neutrophil count. BMP was normal LFTs showed an elevated bilirubin at 2.2 direct bilirubin 1.46 AST and ALT is 131/130 alk phos 143 normal lipase. Gallbladder ultrasound shows cholelithiasis and biliary sludge. Common bile duct 0.5. Please see radiologist read for further details. Patient has received IV fluids Ativan Zofran and some pantoprazole. I spoke with Dr. Sams from general surgery Dr. Sy from gastroenterology and the hospitalist. Her plan is admission for ERCP and possible cholecystectomy. She will receive a dose of Zosyn while here in the department. History & Record Review Discussion w/independent historian: Patient Additional record(s) reviewed:: Prior labs Lab Data Attestation: I reviewed the patient's lab results. Labs: Laboratory Results - last 24 hr 09/18/23 12:45 WBC 11.2 H RBC 4.43 Hgb 13.0 Hct 39.9 MCV 90.1 MCH 29.3 MCHC 32.6 RDW Std Deviation 41.9 RDW Coeff of Allie 12.7 Plt Count 431 MPV 10.2 Immature Gran % (Auto) 0.400 Neut % (Auto) 73.7 H Lymph % (Auto) 18.4 L [place] % (Auto) 5.6 Eos % (Auto) 0.9 Baso % (Auto) 1.0 Absolute Neuts (auto) 8.2 H Absolute Lymphs (auto) 2.06 Nucleated RBC % 0 Sodium 137 Potassium 3.8 Chloride 105 Carbon Dioxide 25.0 Anion Gap 7 BUN 13 Creatinine 0.94 Estim Creat Clear Calc 77.32 Est GFR (MDRD) Af Amer 84 Est GFR (MDRD) Non-Af 69 BUN/Creatinine Ratio 13.8 Glucose 104 Calcium 9.2 Total Bilirubin 2.20 H Direct Bilirubin 1.46 H AST 131 H ALT 130 H Alkaline Phosphatase 143 H Total Protein 7.1 Albumin 3.3 Globulin 3.8 Lipase 46 Serum , Qual NEGATIVE Radiography Diagnostic Testing: Clinical Impression(s) from Imaging Studies Gallbladder Ultrasound 09/18/23 13:20 IMPRESSION: Multiple gallstones and sludge seen within the gallbladder lumen. Electronically Signed: Tao Andrade MD at 14:29 EDT , Management Discussion w/another healthcare provider: Hospitalist and Store Grocery Merchandiser (GI - Dr. Kaycee acevedo Surgery - Dr. Galaviz) Discharge Plan Triage Chief Complaint: Nausea/Vomiting ED Provider: Yordy Ch Dx/Rx/DC Orders Prescriptions: No Action escitalopram oxalate 20 mg tablet 20 mg PO DAILY drospirenone-e.estradiol-lm.FA 3-0.02-0.451 mg (24) (4) tablet 1 tab PO DAILY Primary Care Provider: Durga Cannon Referrals: Durga Cannon MD [Primary Care Provider] - Print Language: Icelandic
[2023-09-18] MEDS: 0.9% Normal Saline (1000mL) 1,000 ML 999 ML IV (12:52)
[2023-09-18] MEDS: Ondansetron 4 MG/2 ML Vial IV ×2 (12:52→18:05)
[2023-09-18] MEDS: LORazepam 2 MG/ML Syringe 1 MG IV (12:52)
[2023-09-18 13:04] LABS: Absolute Lymphocyte Count 2.06 X10^3/uL (0.83-4.51); Absolute Neutrophil Count 8.2 X10^3/uL (2.0-7.7); Basophil# 0.11 X10^3/uL; Eosinophils% 0.9 % (0-5); Hematocrit 39.9 % (37-47); Lymphocyte # 2.06 X10^3/ul (0.83-4.51); Lymphocyte % 18.4 % (19-41); Mean Corp Hgb Conc 32.6 g/dL (32-36); Mean Corpuscular Hgb 29.3 pg (27.0-32.0); Mean Corpuscular Volume 90.1 fL (81-99); Mean Platelet Vol. 10.2 fl (6.2-12.0); Monocyte# 0.62 X10^3/uL; Monocyte% 5.6 % (0-10); NRBC Flagged by Analyzer 0 % (0-5); Neutrophil # 8.23 X10^3/uL (2.7-7.7); Neutrophil % 73.7 % (47-70); Platelet Count 431 K/mm3 (150-450); RBC Distribution Width CV 12.7 % (11.6-14.6); RBC Distribution Width SD 41.9 fl (35.1-43.9); Red Blood Count 4.43 M/mm3 (4.2-5.4); White Blood Count 11.2 K/mm3 (4.4-11.0)
[2023-09-18 13:06] LABS: Internal QC Validated? YES +Cl - CLEAR BKGD; Pregnancy, Serum, hCG Quali. NEGATIVE Negative; Record Kit Lot#, Serum Preg. HCG0000718089
[2023-09-18 13:13] LABS: AST(SGOT) 131 U/L (15-37); Alanine Aminotransfer ALT/SGPT 130 U/L (13-56); Albumin, Serum 3.3 g/dL (3.2-5.0); Alkaline Phosphatase 143 U/L (45-117); Anion Gap 7 (5-15); BUN 13 mg/dL (7-18); BUN/Creat Ratio 13.8 RATIO (10-20); Bilirubin, Direct 1.46 mg/dL (0.00-0.30); Calcium,Total 9.2 mg/dL (8.5-10.1); Chloride 105 mmol/L (98-107); Creatinine, Serum 0.94 mg/dL (0.55-1.02); EST Glomerular Filtration Rate 69 mL/min (>60); Est Glom Filt Rate - Afr Amer 84 mL/min (>60); Estimated Creatinine Clearance 77.32 ml/min; Globulin 3.8 g/dL (2.2-4.2); Glucose 104 mg/dL (74-106); Lipase 46 U/L (13-75); Potassium 3.8 mmol/L (3.5-5.1); Protein, Total 7.1 g/dL (6.4-8.2); Sodium Level 137 mmol/L (136-145)
--- NOTE | 2023-09-18 13:20 | US_ITS ---
STUDY: ABDOMINAL ULTRASOUND - RIGHT UPPER QUADRANT REASON FOR VISIT: Female, 43 years old pain and elevated LFTs TECHNIQUE: Ultrasound evaluation of the right upper quadrant was performed with real-time and static gage-scale imaging. TECHNICAL QUALITY: Adequate. COMPARISON: None. FINDINGS: Liver: The liver measures 15.6 cm. There is normal echogenicity of the liver. The bile ducts are within normal limits. There is hepatic color flow. The direction of portal flow is hepatopetal. There is no demonstrated mass lesion. Gallbladder: Normal distended gallbladder. The gallbladder wall measures 1.6 mm. There is a negative sonographic Kohler''s sign. There is no pericholecystic fluid. There are multiple echogenic structures within the gallbladder, consistent with multiple sludge is seen within the gallbladder lumen. Gallstones. Common Bile Duct (C.B.D.): The common bile duct measures 5.1 mm. Pancreas: Normal size of the head, body and tail of the pancreas. There is increased echogenicity of the pancreas. There is no demonstrated pancreatic mass or cyst. Right Kidney: Normal size of the right kidney. The right kidney measures 12.8 cm x 4.9 cm x 5 cm. Normal renal cortex. The right cortex measures 1.2 cm. There is no demonstrated renal mass or cyst. There is no right hydronephrosis. US/Gallbladder IMPRESSION: Multiple gallstones and sludge seen within the gallbladder lumen. Electronically Signed: Tao Andrade MD at 14:29 EDT ,
[2023-09-18] MEDS: Pantoprazole Sodium 40 MG in 0.9% Normal Saline (100mL MB+) 100 ML 330 MG IV (15:33)
--- NOTE | 2023-09-18 16:14 | PCM.HP.STD ---
HPI - General General Date of Admission: 09/18/23 Date of Service: 09/18/23 Chief Complaint: Nausea and vomiting HPI Narrative ARLEY ROY, is a 43 F with a significant history of PCOS; marijuana abuse and depression who presents to emergency department with 3-day history of persistent nausea and vomiting. Reportedly she has not been able to keep any food down. Associated of her symptoms is epigastric pain that stretches from the upper parts of her abdomen to her back back in a bandlike pattern. She rated pain as 8 out of 10. The pain improves with pressing the pillow against it. The pain worsens with food. A day before presentation she had 2 slices of pizza that worsened her pain. After vomiting she had some relief from her pain. She denied fever. She reports chills. Last time her bowels move was the day before presentation. At the ED imaging showed sludge in the gallbladder. Emergency department physician gave patient's Zosyn and discussed case with general surgery and GI who will follow the patient's. FORMERLY [facility] Medical History Anxiety Smoker Migraines UTI (urinary tract infection) PCOS (polycystic ovarian syndrome) Spinal stenosis Home Medications ?Medication ?Instructions ?Recorded ?Last Taken ?Type drospiren-e.estrad-l.mefol 3 1 tab PO DAILY 09/04/23 Unknown History mg-0.02 mg-0.451 mg(24)/0.451 mg(4)tablet escitalopram oxalate 20 mg tablet 20 mg PO DAILY 09/04/23 Unknown History Allergy/AdvReac Type Severity Reaction Status Date / Time latex Allergy Hives Verified 09/18/23 12:06 nicotine (From Nicoderm CQ) Allergy Hives Verified 09/18/23 12:06 Family History adopted adopted Surgical History Hx of tubal ligation History of appendectomy History of tonsillectomy and adenoidectomy Social History household members: spouse Smoking Status: Current every day smoker tobacco type: e-cigarettes substance use type: does not use ROS ROS Narrative Pertinent positives and pertinent negatives as noted in HPI. All other systems were reviewed and are negative Vital Signs Vital Signs Vital Signs: 09/18/23 12:05 09/18/23 14:04 09/18/23 16:00 Temperature 96.5 F L Temperature Source Temporal Pulse Rate 85 78 Respiratory Rate 16 16 14 Blood Pressure 151/85 H 124/71 H Blood Pressure Mean 107 88 Pulse Ox 100 98 Oxygen Delivery Method Room Air Room Air Weight Weight: 88.813 kg Body Mass Index (BMI) 38.2 Physical Exam Narrative Physical exam: General: Well-nourished, well-developed. Head: Normocephalic, atraumatic, no tenderness Eyes: Vision is grossly intact. EOMI ENT, no trauma, moist mucous membranes, no rhinorrhea Neck: Nontender, No thyromegaly. CVS: Regular rate and rhythm. S1-S2 present. No murmur, gallop or rub. Respiratory : clear to auscultation bilaterally, chest wall nontender Abdomen: Soft, tender at epigastric area, nondistended, normal bowel sounds, no masses : Deferred Back: Nontender, no CVA tenderness, no midline spinal tenderness, deformities, step-offs Extremities: Nontender full range of motion, no trauma Skin: Normal color, no trauma, abrasions Neuro: Alert, oriented, cranial nerves II through XII grossly intact. Psychiatry: Normal mood. Normal affect. Not depressed. Not anxious. Results Lab / Micro Data 09/18/23 12:45 09/18/23 12:45 Labs: Laboratory Results - last 24 hr 09/18/23 12:45: WBC 11.2 H, RBC 4.43, Hgb 13.0, Hct 39.9, MCV 90.1, MCH 29.3, MCHC 32.6, RDW Std Deviation 41.9, RDW Coeff of Allie 12.7, Plt Count 431, MPV 10.2, Immature Gran % (Auto) 0.400, Neut % (Auto) 73.7 H, Lymph % (Auto) 18.4 L, [place] % (Auto) 5.6, Eos % (Auto) 0.9, Baso % (Auto) 1.0, Absolute Neuts (auto) 8.2 H, Absolute Lymphs (auto) 2.06, Nucleated RBC % 0, Sodium 137, Potassium 3.8, Chloride 105, Carbon Dioxide 25.0, Anion Gap 7, BUN 13, Creatinine 0.94, Estim Creat Clear Calc 77.32, Est GFR (MDRD) Af Amer 84, Est GFR (MDRD) Non-Af 69, BUN/Creatinine Ratio 13.8, Glucose 104, Calcium 9.2, Total Bilirubin 2.20 H, Direct Bilirubin 1.46 H, AST 131 H, ALT 130 H, Alkaline Phosphatase 143 H, Total Protein 7.1, Albumin 3.3, Globulin 3.8, Lipase 46, Serum , Qual NEGATIVE Imaging Radiology Impression Gallbladder Ultrasound 09/18/23 13:20 IMPRESSION: Multiple gallstones and sludge seen within the gallbladder lumen. Electronically Signed: Tao Andrade MD at 14:29 EDT , Assessment & Plan Assessment/Plan (1) Cholelithiasis: QUALIFIERS: Cholelithiasis location: gallbladder and bile duct Cholecystitis presence: without cholecystitis Biliary obstruction: with biliary obstruction Qualified Code(s): K80.71 - Calculus of gallbladder and bile duct without cholecystitis with obstruction (2) Abdominal pain, acute: (3) Elevated liver enzymes: (4) Family planning: PLAN: Plan Biliary colic/cholelithiasis/elevated liver enzymes. Will keep patient NPO. Supportive treatment with lactated Ringer's infusion. As needed Zofran for antiemetics. As needed morphine for pain. General surgery and GI consults. Trend CMP. Patient was given Zosyn in the emergency department. With patient complaining of chills will continue Zosyn as patient otherwise plan to do ERCP. History of depression Stable Lexapro Family-planning Continue oral contraceptive pills DVT prophylaxis: SCDs ordered. Time spent in the patient's overall evaluation,decision-making process, review of diagnostic data, adjustment of management, discussion with other providers, nursing and ancillary staff involved in patient's care documentation, 70 minutes. Advance care planning: Discussed with patient and family advanced directives as well as CODE STATUS. Explained various CODE STATUS: FULL CODE, DNR CCA, DNR CCA with no intubation, and DNR CC- and what each meant. Patient elected to be a full code with CPR and intubation if warranted. Order was placed. Time spent on discussion 16 minutes. Charges/Coding Visit Charges Inpatient E&M: 40614 Init Hosp L3 Procedures Hospitalists Procedures: 37007 Advncd Care Plan 30 Min
[2023-09-18] MEDS: Piperacil/Tazobactam 4.5 GM in 0.9% Normal Saline (100mL MB+) 100 ML IV (16:48)
[2023-09-18] MEDS: Lactated Ringers 1,000 ML 100 ML IV (17:56)
[2023-09-18] MEDS: Escitalopram Oxalate 20 MG Tablet PO (22:18)
[2023-09-18] MEDS: Piperacil/Tazobactam 3.375 GM in 0.9% Normal Saline (50mL MB+) 50 ML IV (22:26)
[2023-09-19] VITALS (12 sets, daily range): BP systolic 88–143; BP diastolic 47–90; PULSE 60–93; RESP 16–17; TEMP 36.1–36.9; O2SAT 95–100; BMI 38.9
[2023-09-19] MEDS: Lactated Ringers 1,000 ML 100 ML IV ×2 (03:56→16:13)
[2023-09-19] MEDS: Ondansetron 4 MG/2 ML Vial IV (03:58)
--- NOTE | 2023-09-19 05:00 | EKG12_ITS ---
Test Reason : PRE-OP Blood Pressure : / mmHG Vent. Rate : 057 BPM Atrial Rate : 057 BPM P-R Int : 126 ms QRS Dur : 092 ms QT Int : 436 ms P-R-T Axes : 065 026 008 degrees QTc Int : 424 ms Sinus bradycardia Otherwise normal ECG When compared with ECG of 23-AUG-2016 11:35, No significant change was found Confirmed by Jose M Parrish ([id number]), desk editor BERNADINE BLANDON ([id number]) on 09/23/2023 1:29:52 PM Referred By: Confirmed By:Jose M Parrish
[2023-09-19] MEDS: Piperacil/Tazobactam 3.375 GM in 0.9% Normal Saline (50mL MB+) 50 ML IV ×3 (05:12→21:09)
[2023-09-19 06:24] LABS: Absolute Lymphocyte Count 2.82 X10^3/uL (0.83-4.51); Absolute Neutrophil Count 6.9 X10^3/uL (2.0-7.7); Basophil# 0.09 X10^3/uL; Basophil% 0.8 % (0-1); Eosinophil# 0.13 X10^3/uL; Eosinophils% 1.2 % (0-5); Hematocrit 35.2 % (37-47); Hemoglobin 11.5 g/dL (12.0-15.0); Lymphocyte # 2.82 X10^3/ul (0.83-4.51); Lymphocyte % 26.6 % (19-41); Mean Corp Hgb Conc 32.7 g/dL (32-36); Mean Corpuscular Hgb 29.6 pg (27.0-32.0); Mean Corpuscular Volume 90.5 fL (81-99); Mean Platelet Vol. 10.3 fl (6.2-12.0); Monocyte# 0.62 X10^3/uL; Monocyte% 5.8 % (0-10); NRBC Flagged by Analyzer 0 % (0-5); Neutrophil # 6.92 X10^3/uL (2.7-7.7); Neutrophil % 65.2 % (47-70); Platelet Count 346 K/mm3 (150-450); RBC Distribution Width CV 12.3 % (11.6-14.6); RBC Distribution Width SD 40.6 fl (35.1-43.9); Red Blood Count 3.89 M/mm3 (4.2-5.4); White Blood Count 10.6 K/mm3 (4.4-11.0)
[2023-09-19 06:52] LABS: ALB/GLOB Ratio 0.8 RATIO (0.9-2.4); AST(SGOT) 156 U/L (15-37); Alanine Aminotransfer ALT/SGPT 164 U/L (13-56); Albumin, Serum 2.7 g/dL (3.2-5.0); Alkaline Phosphatase 159 U/L (45-117); Anion Gap 11 (5-15); BUN 10 mg/dL (7-18); BUN/Creat Ratio 12.2 RATIO (10-20); Calcium,Total 8.5 mg/dL (8.5-10.1); Chloride 109 mmol/L (98-107); Creatinine, Serum 0.82 mg/dL (0.55-1.02); EST Glomerular Filtration Rate 81 mL/min (>60); Est Glom Filt Rate - Afr Amer 98 mL/min (>60); Estimated Creatinine Clearance 89.59 ml/min; Globulin 3.2 g/dL (2.2-4.2); Glucose 72 mg/dL (74-106); Potassium 3.7 mmol/L (3.5-5.1); Protein, Total 5.9 g/dL (6.4-8.2); Sodium Level 138 mmol/L (136-145)
--- NOTE | 2023-09-19 07:11 | CON.PCM.SX_ITS ---
Assessment & Plan Assessment/Plan (1) Cholelithiasis: QUALIFIERS: Biliary obstruction: with biliary obstruction C holecystitis presence: without cholecystitis Cholelithiasis location: g allbladder and bile duct Qualified Code(s): K80.71 - Calculus of gallbladder and bile duct without cholecystitis with obstruction (2) Elevated liver enzymes: PLAN: Plan Patient currently n.p.o. scheduled for an ERCP this morning with Dr. Sy. Continue IV Zosyn Continue pain control Discussed with patient we will plan to do a laparoscopic cholecystectomy tomorrow to prevent further gallstones from entering the common bile duct. Reviewed the anatomy with the patient and discussed the procedure: laparoscopic cholecystectomy with possible cholangiograms, possible open. Review risks including but not limited to bleeding, infection, hernia, bile leak, retained gallstones requiring another procedure ERCP- Endoscopic Retrograde Cholangiopancreatography, injury to another organ (bile ducts, common bile duct, small bowel, etc.) and conversion to an open procedure. All questions were answered. Asia Galaviz M.D. Pager: [phone] [facility] [address] [place] [address], [address] [place] [address] Office: [phone] HPI Consult Data Date of Consult: 09/19/23 HPI Narrative HPI Narrative: ARLEY ROY, is a 43 F who presents to the ER due to mid epigastric abdominal pain for the last 4 days. Patient had nausea and vomiting with this. Patient denies ever having previous episodes similar. Patient's LFTs were elevated on admit to the ER. And still elevated this morning. Patient had a ultrasound the gallbladder showed normal wall no pericholecystic fluid normal common bile duct, small gallstones in the gallbladder. Patient states the pain started 4 days ago after eating some [place] sausage that it happened about 10 minutes after. Patient does use marijuana daily otherwise denies tobacco or alcohol. FORMERLY [facility] Medical History Anxiety Smoker Migraines UTI (urinary tract infection) PCOS (polycystic ovarian syndrome) Spinal stenosis Home Medications ?Medication ?Instructions ?Recorded ?Last Taken ?Type drospiren-e.estrad-l.mefol 3 1 tab PO DAILY 09/04/23 Unknown History mg-0.02 mg-0.451 mg(24)/0.451 mg(4)tablet escitalopram oxalate 20 mg tablet 20 mg PO DAILY 09/04/23 Unknown History Allergy/AdvReac Type Severity Reaction Status Date / Time latex Allergy Hives Verified 09/18/23 12:06 nicotine (From Louise ) Allergy Hives Verified 09/18/23 12:06 Family History adopted Surgical History Hx of tubal ligation History of appendectomy History of tonsillectomy and adenoidectomy Social History household members: spouse Smoking Status: Current every day smoker tobacco type: e-cigarettes substance use type: does not use ROS Constitutional Constitutional: Reports anorexia Eyes Eyes: Denies loss of central vision ENT HEENT: Denies dysphagia Cardiovascular Cardiovascular: Denies chest pain Respiratory/Chest Respiratory/Chest: Denies productive cough Gastrointestinal Gastrointestinal: Reports abdominal pain, nausea and vomiting Genitourinary Genitourinary: Denies dysuria Musculoskeletal Musculoskeletal: Denies joint swelling Integumentary Integumentary: Denies rash Neurologic Neurologic: Denies focal weakness Psychiatric Psychiatric: Denies depression Endocrine Endocrinology: Denies palpitations Hematologic/Lymphatic Hematologic/Lymphatic: Denies easy bleeding Physical Exam Const alert, oriented x3 and no apparent distress HEENT normocephalic and head/scalp atraumatic Resp normal respiratory effort Cardio regular rate GI soft to palpation; Negative for non-distended Palpation: tender epigastric, LUQ, RUQ and other (No rebound); Negative for guarding Extremity no clubbing, cyanosis or edema Skin no rashes or lesions noted Neuro CN's II-XII intact bilaterally Psych mental status grossly normal Lab / Micro Data 09/19/23 06:05 09/19/23 06:05 Labs: Laboratory Results - last 24 hr 09/18/23 12:45: WBC 11.2 H, RBC 4.43, Hgb 13.0, Hct 39.9, MCV 90.1, MCH 29.3, MCHC 32.6, RDW Std Deviation 41.9, RDW Coeff of Allie 12.7, Plt Count 431, MPV 10.2, Immature Gran % (Auto) 0.400, Neut % (Auto) 73.7 H, Lymph % (Auto) 18.4 L, [place] % (Auto) 5.6, Eos % (Auto) 0.9, Baso % (Auto) 1.0, Absolute Neuts (auto) 8.2 H, Absolute Lymphs (auto) 2.06, Nucleated RBC % 0, Sodium 137, Potassium 3.8, Chloride 105, Carbon Dioxide 25.0, Anion Gap 7, BUN 13, Creatinine 0.94, Estim Creat Clear Calc 77.32, Est GFR (MDRD) Af Amer 84, Est GFR (MDRD) Non-Af 69, BUN/Creatinine Ratio 13.8, Glucose 104, Calcium 9.2, Total Bilirubin 2.20 H, Direct Bilirubin 1.46 H, AST 131 H, ALT 130 H, Alkaline Phosphatase 143 H, Total Protein 7.1, Albumin 3.3, Globulin 3.8, Lipase 46, Serum , Qual NEGATIVE 09/19/23 06:05: WBC 10.6, RBC 3.89 L, Hgb 11.5 L, Hct 35.2 L, MCV 90.5, MCH 29.6, MCHC 32.7, RDW Std Deviation 40.6, RDW Coeff of Allie 12.3, Plt Count 346, MPV 10.3, Immature Gran % (Auto) 0.400, Neut % (Auto) 65.2, Lymph % (Auto) 26.6, [place] % (Auto) 5.8, Eos % (Auto) 1.2, Baso % (Auto) 0.8, Absolute Neuts (auto) 6.9, Absolute Lymphs (auto) 2.82, Nucleated RBC % 0, Sodium 138, Potassium 3.7, Chloride 109 H, Carbon Dioxide 18.0 L, Anion Gap 11, BUN 10, Creatinine 0.82, Estim Creat Clear Calc 89.59, Est GFR (MDRD) Af Amer 98, Est GFR (MDRD) Non-Af 81, BUN/Creatinine Ratio 12.2, Glucose 72 L, Calcium 8.5, Total Bilirubin 2.80 H , AST 156 H, ALT 164 H, Alkaline Phosphatase 159 H, Total Protein 5.9 L, Albumin 2.7 L, Globulin 3.2, Albumin/Globulin Ratio 0.8 L Imaging Radiology Impression Gallbladder Ultrasound 09/18/23 13:20 IMPRESSION: Multiple gallstones and sludge seen within the gallbladder lumen. Electronically Signed: Tao Andrade MD at 14:29 EDT , Charges/Coding Visit Charges Inpatient E&M: 67957 Init Hosp L3
[2023-09-19] MEDS: Morphine 2 MG/ML Syringe IV (07:40)
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
[2023-09-19] MEDS: proCHLORPERazine 10 MG/2 ML Vial IV (09:31)
--- NOTE | 2023-09-19 12:30 | RAD_ITS ---
STUDY: ERCP. REASON FOR EXAM: Female, 43 years old. Right upper quadrant pain. TECHNIQUE: ERCP was performed by the lens mounter. Imaging was provided. COMPARISON: None. FINDINGS: The common bile duct was opacified. A biliary stent was placed. RAD/ERCP Biliary/Pancreas IMPRESSION: Biliary stent placement. Electronically Signed: Tao Andrade MD at 13:38 EDT ,
--- NOTE | 2023-09-19 12:34 | CON.PCM.GI_ITS ---
HPI Consult Data Date of Consult: 09/18/23 HPI Narrative Reason for Consultation: Jaundice and hepatitis HPI Narrative: ARLEY ROY, is a 43 F who presents with worsening abdominal pain. She also has a significant history of PCOS; marijuana abuse and depression who presents to emergency department with 3-day history of persistent nausea and vomiting. Reportedly she has not been able to keep any food down. Associated of her symptoms is epigastric pain that stretches from the upper parts of her abdomen to her back back in a bandlike pattern. She rated pain as 8 out of 10. The pain improves with pressing the pillow against it. The pain worsens with food. A day before presentation she had 2 slices of pizza that worsened her pain. After vomiting she had some relief from her pain. She denied fever. She reports chills. Last time her bowels move was the day before presentation. At the ED imaging showed sludge in the gallbladder. Emergency department physician gave patient's Zosyn. [facility] Medical History Anxiety Smoker Migraines UTI (urinary tract infection) PCOS (polycystic ovarian syndrome) Spinal stenosis Home Medications ?Medication ?Instructions ?Recorded ?Last Taken ?Type drospiren-e.estrad-l.mefol 3 1 tab PO DAILY 09/04/23 Unknown History mg-0.02 mg-0.451 mg(24)/0.451 mg(4)tablet escitalopram oxalate 20 mg tablet 20 mg PO DAILY 09/04/23 Unknown History Allergy/AdvReac Type Severity Reaction Status Date / Time latex Allergy Hives Verified 09/18/23 12:06 nicotine (From Nicoderm CQ) Allergy Hives Verified 09/18/23 12:06 Family History adopted Surgical History Hx of tubal ligation History of appendectomy History of tonsillectomy and adenoidectomy Social History household members: spouse Smoking Status: Current every day smoker tobacco type: e-cigarettes substance use type: does not use ROS Constitutional Constitutional: Reports anorexia Eyes Eyes: Denies loss of central vision ENT HEENT: Denies dysphagia Cardiovascular Cardiovascular: Denies chest pain Respiratory/Chest Respiratory/Chest: Denies productive cough Gastrointestinal Gastrointestinal: Reports abdominal pain, nausea and vomiting Genitourinary Genitourinary: Denies dysuria Musculoskeletal Musculoskeletal: Denies joint swelling Integumentary Integumentary: Denies rash Neurologic Neurologic: Denies focal weakness Psychiatric Psychiatric: Denies depression Endocrine Endocrinology: Denies palpitations Hematologic/Lymphatic Hematologic/Lymphatic: Denies easy bleeding Physical Exam Const alert, oriented x3, no apparent distress and well nourished; Negative for average body habitus or healthy appearing Constitutional Narrative: Obese, middle-aged, white female, sitting up on the edge of the bed, appears comfortable, nontoxic HEENT head/scalp atraumatic and moist oral mucous membranes HEENT Narrative: Mallampati 3, no thrush Head and Scalp: normocephalic Resp normal respiratory effort, no retractions, no use of accessory muscles and clear to auscultation bilaterally Auscultation: Negative for rales, rhonchi or wheezes Cardio regular rate, regular rhythm, S1 normal heart sound, S2 normal heart sound, no murmurs, no rub, no gallops and no clicks GI normal to inspection, nondistended, normoactive bowel sounds and soft to palpation GI Narrative: Tenderness and specifically right upper quadrant that radiates across her entire upper abdomen Extremity no clubbing, cyanosis or edema Extremity Narrative: Pedal pulses are 2+ Neuro oriented x3, moves all extremities and no focal motor deficits Speech: speech normal Psych affect normal Psych Narrative: Very pleasant, interacts appropriately Lab / Micro Data 09/19/23 06:05 09/19/23 06:05 Labs: Laboratory Results - last 24 hr 09/19/23 06:05: WBC 10.6, RBC 3.89 L, Hgb 11.5 L, Hct 35.2 L, MCV 90.5, MCH 29.6, MCHC 32.7, RDW Std Deviation 40.6, RDW Coeff of Allie 12.3, Plt Count 346, MPV 10.3, Immature Gran % (Auto) 0.400, Neut % (Auto) 65.2, Lymph % (Auto) 26.6, Ritchie % (Auto) 5.8, Eos % (Auto) 1.2, Baso % (Auto) 0.8, Absolute Neuts (auto) 6.9, Absolute Lymphs (auto) 2.82, Nucleated RBC % 0, Sodium 138, Potassium 3.7, Chloride 109 H, Carbon Dioxide 18.0 L, Anion Gap 11, BUN 10, Creatinine 0.82, Estim Creat Clear Calc 89.59, Est GFR (MDRD) Af Amer 98, Est GFR (MDRD) Non-Af 81, BUN/Creatinine Ratio 12.2, Glucose 72 L, Calcium 8.5, Total Bilirubin 2.80 H , AST 156 H, ALT 164 H, Alkaline Phosphatase 159 H, Total Protein 5.9 L, Albumin 2.7 L, Globulin 3.2, Albumin/Globulin Ratio 0.8 L Imaging Radiology Impression Gallbladder Ultrasound 09/18/23 13:20 IMPRESSION: Multiple gallstones and sludge seen within the gallbladder lumen. Electronically Signed: Tao Andrade MD at 14:29 EDT , Assessment & Plan Assessment/Plan (1) Elevated liver enzymes: (2) Vomiting: (3) Cholelithiasis: QUALIFIERS: Cholelithiasis location: gallbladder and bile duct C holecystitis presence: without cholecystitis Biliary obstruction: with biliary obstruction Qualified Code(s): K80.71 - Calculus of gallbladder and bile duct without cholecystitis with obstruction (4) Abdominal pain, acute: PLAN: Plan 43-year-old who presents with abdominal pain with nausea vomiting and discovered to have a cholestatic hepatitis with jaundice secondary to choledocholithiasis and cholecystitis. She is on Zosyn therapy. She will undergo ERCP with stone removal and possible stent placement. She was explained alternatives, risk, benefits include not withstanding bleeding, infection, sepsis, perforation, post ERCP pancreatitis, and elected to have ERCP. She will have ASA of 3 for the procedure. Charges/Coding Visit Charges Inpatient E&M: 58049 Init Hosp L3
--- NOTE | 2023-09-19 13:31 | OP.ERCP_ITS ---
Patient Name: Marlena Ley Procedure Date: 09/19/2023 12:40 PM Date of : 1980 Age: 43 Procedure: ERCP Indications: Bile duct stone(s), Jaundice, Elevated liver enzymes Providers: Galindo Sy DO Medicines: General Anesthesia Patient Profile: This is a 43 year old female. Refer to note in patient chart for documentation of history and physical. Patient has symptoms of acute right upper quadrant abdominal pain and acute jaundice. This patient has no history of previous ERCP. Complications: No immediate complications. Procedure: Pre-Anesthesia Assessment: - Prior to the procedure, a History and Physical was performed, and patient medications and allergies were reviewed. The patient is competent. The risks and benefits of the procedure and the sedation options and risks were discussed with the patient. All questions were answered and informed consent was obtained. Patient identification and proposed procedure were verified by the physician in the pre-procedure area. Mental Status Examination: alert and oriented. Airway Examination: normal oropharyngeal airway and neck mobility. Respiratory Examination: clear to auscultation. CV Examination: normal. Prophylactic Antibiotics: The patient does not require prophylactic antibiotics. Prior Anticoagulants: The patient has taken no anticoagulant or antiplatelet agents. ASA Grade Assessment: II - A patient with mild systemic disease. After reviewing the risks and benefits, the patient was deemed in satisfactory condition to undergo the procedure. The anesthesia plan was to use general anesthesia. Immediately prior to administration of medications, the patient was re-assessed for adequacy to receive sedatives. The heart rate, respiratory rate, oxygen saturations, blood pressure, adequacy of pulmonary ventilation, and response to care were monitored throughout the procedure. The physical status of the patient was re-assessed after the procedure. After obtaining informed consent, the scope was passed under direct vision. Throughout the procedure, the patient's blood pressure, pulse, and oxygen saturations were monitored continuously. The Duodenoscope was introduced through the mouth, and advanced to the duodenum and used to inject contrast into the bile duct and ventral pancreatic duct. The ERCP was accomplished without difficulty. The patient tolerated the procedure well. Scope In: 12:57:07 PM Scope Out: 1:19:55 PM Total Procedure Duration Time 0 hours 22 minutes 48 seconds Findings: The marketing strategy manager film was normal. The esophagus was successfully intubated under direct vision. The scope was advanced to a normal major papilla in the descending duodenum without detailed examination of the pharynx, larynx and associated structures, and upper GI tract. The upper GI tract was grossly normal. The bile duct was deeply cannulated with the short-nosed traction sphincterotome. Contrast was injected. I personally interpreted the bile duct images. There was brisk flow of contrast through the ducts. Image quality was adequate. Contrast extended to the entire biliary tree. Opacification of the entire opacified area was successful. The maximum diameter of the ducts was 10 mm. The lower third of the main bile duct contained two stones, the largest of which was 6 mm in diameter. The main bile duct was moderately dilated and diffusely dilated, with a stone causing an obstruction. The largest diameter was 10 mm. A straight Roadrunner wire was passed into the biliary tree. A 5 mm biliary sphincterotomy was made with a traction (standard) sphincterotome using ERBE electrocautery. Moderate bleeding from the sphincterotomy stopped within 5 minutes. The biliary tree was swept with a 12 mm balloon starting at the bifurcation. Sludge was swept from the duct. All stones were removed. One 10 Fr by 5 cm temporary stent with no internal flaps was placed 5 cm into the common bile duct. Bile flowed through the stent. The stent was in good position. The ventral pancreatic duct was deeply cannulated with the short-nosed traction sphincterotome. Contrast was injected. Opacification of the entire pancreatic ductal system was successful. The maximum diameter of the ducts was 2 mm. The entire opacified area was normal. A long 0.025 inch Jagwire was passed into the ventral pancreatic duct. A 5 mm ventral pancreatic sphincterotomy was made with a traction (standard) sphincterotome using ERBE electrocautery. There was no post-sphincterotomy bleeding. To find object(s) the ventral pancreatic duct was swept with a 6 mm balloon starting at the pancreatic duct in the body of the pancreas. Impression: - The entire main bile duct was moderately dilated, with a stone causing an obstruction. - Choledocholithiasis was found. Complete removal was accomplished by biliary sphincterotomy and balloon extraction. - A biliary sphincterotomy was performed. - The biliary tree was swept. - One temporary stent was placed into the common bile duct. - A pancreatic sphincterotomy was performed. - The ventral pancreatic duct was swept. Procedure Code(s): --- Professional --- 29323, Endoscopic retrograde cholangiopancreatography (ERCP); with placement of endoscopic stent into biliary or pancreatic duct, including pre- and post-dilation and guide wire passage, when performed, including sphincterotomy, when performed, each stent 05879, Endoscopic retrograde cholangiopancreatography (ERCP); with removal of calculi/debris from biliary/pancreatic duct(s) 53323, 59, Endoscopic retrograde cholangiopancreatography (ERCP); with sphincterotomy/papillotomy 09046, 26, Endoscopic catheterization of the biliary ductal system, radiological supervision and interpretation CPT copyright 2021 [employer]. All rights reserved. The codes documented in this report are preliminary and upon order builder loader review may be revised to meet current compliance requirements. Galindo Sy DO 09/19/2023 1:30:34 PM This report has been signed electronically. Number of Addenda: 0 Note Initiated On: 09/19/2023 12:40 PM
--- NOTE | 2023-09-19 13:31 | OP.CCLET_ITS ---
09/19/2023 Durga Cannon Re : ERCP procedure for Marlena Cannon This procedure was performed on August. My impressions and recommendations are as follows: Impressions : - The entire main bile duct was moderately dilated, with a stone causing an obstruction. - Choledocholithiasis was found. Complete removal was accomplished by biliary sphincterotomy and balloon extraction. - A biliary sphincterotomy was performed. - The biliary tree was swept. - One temporary stent was placed into the common bile duct. - A pancreatic sphincterotomy was performed. - The ventral pancreatic duct was swept. Recommendations : My findings are described in the full procedure note, which is enclosed. If I can be of further assistance, please feel free to contact me at . Sincerely, Galindo Sy, 09/19/2023 1:30:34 PM This report has been signed electronically.
[2023-09-19] MEDS: Escitalopram Oxalate 20 MG Tablet PO (21:10)
[2023-09-20] VITALS (11 sets, daily range): BP systolic 115–170; BP diastolic 65–100; PULSE 57–67; RESP 16–18; TEMP 36.4–37.2; O2SAT 93–98; BMI 38.9
--- NOTE | 2023-09-20 | GALL_PTH ---
PATIENT: ARLEY ROY LOC: MS3 U#:[id number] AGE/SX: 43/F [place] [facility] [place]: Dr. Kye Ayala MD : 1980 BED: 1 DIS: 09/21/2023 SPEC #: [id number] RECD: 09/20/23 13:29 STATUS: MOSHE FRASERJamie #: [id number] ANISA: 09/20/23 00:[address]: Asia Galaviz DEPT: SURGICAL PATHOLOGY RECD BY: Ventura Pickering ENTERED: 09/20/23 13:29 SP TYPE: GALLBLADDE OTHR DR: MD Dr. Ferny Wilkerson MD Dr. Kathryn Lee, DO Dr. Tamera Robotham, MD Tissues: Gallbladder, NOS Procedures: Surgery Specimen Level III Comments: @ Ordering doctor for SUIII edited from to @ by SHIRAZ at 09/23/23 1328 @ Submitting doctor edited from to @ by SHIRAZ at 09/23/23 1328 HEADER OPERATION: Laparoscopic cholecystectomy PRE-OP DIAGNOSIS: Cholelithiasis TISSUE SUBMITTED: Gallbladder MICROSCOPIC DIAGNOSIS Gallbladder, cholecystectomy: Chronic cholecystitis, cholelithiasis and cholesterolosis. / 09/23/2023 MICROSCOPIC DESCRIPTION Slides are reviewed. GROSS DESCRIPTION Received is one container labeled with the patient's name and designated gallbladder. The specimen consists of a gallbladder measuring 7.0 x 2.5 x 2.5 cm. The external surface is smooth and glistening. Focally, it is granular, hemorrhagic and contains cautery artifact. The lumen of the gallbladder contains yellow-green mucoid bile and multiple yellow calculi ranging in size from <0.1 to 0.4 cm in greatest dimension. The mucosa is bile-stained and without any mass lesions. The gallbladder wall averages 0.2 cm in thickness and is free of mass lesions. Crm Administrator sections of the gallbladder and the cystic duct at margin of resection are submitted in one cassette. / AM: 09/20/2023 TC:3 CPT: 21125
[2023-09-20] MEDS: Lactated Ringers 1,000 ML 100 ML IV (02:45)
[2023-09-20] MEDS: Piperacil/Tazobactam 3.375 GM in 0.9% Normal Saline (50mL MB+) 50 ML IV ×2 (05:02→14:00)
[2023-09-20 06:11] LABS: Hematocrit 34.1 % (37-47); Hemoglobin 11.3 g/dL (12.0-15.0); Mean Corp Hgb Conc 33.1 g/dL (32-36); Mean Corpuscular Hgb 29.3 pg (27.0-32.0); Mean Corpuscular Volume 88.3 fL (81-99); Mean Platelet Vol. 10.4 fl (6.2-12.0); Platelet Count 369 K/mm3 (150-450); RBC Distribution Width CV 12.1 % (11.6-14.6); Red Blood Count 3.86 M/mm3 (4.2-5.4)
[2023-09-20 06:55] LABS: ALB/GLOB Ratio 0.8 RATIO (0.9-2.4); AST(SGOT) 100 U/L (15-37); Alanine Aminotransfer ALT/SGPT 156 U/L (13-56); Albumin, Serum 2.6 g/dL (3.2-5.0); Alkaline Phosphatase 140 U/L (45-117); Anion Gap 7 (5-15); BUN 7 mg/dL (7-18); Calcium,Total 8.7 mg/dL (8.5-10.1); Chloride 108 mmol/L (98-107); Creatinine, Serum 0.78 mg/dL (0.55-1.02); EST Glomerular Filtration Rate 87 mL/min (>60); Est Glom Filt Rate - Afr Amer 105 mL/min (>60); Estimated Creatinine Clearance 94.19 ml/min; Globulin 3.2 g/dL (2.2-4.2); Glucose 122 mg/dL (74-106); Phosphorus 2.5 mg/dL (2.5-4.9); Potassium 3.8 mmol/L (3.5-5.1); Protein, Total 5.8 g/dL (6.4-8.2); Sodium Level 137 mmol/L (136-145)
--- NOTE | 2023-09-20 07:00 | PN.GI_ITS ---
Subjective Subjective Patient underwent ERCP yesterday for obstructive jaundice. She had multiple stones removed via ERCP and had stent placed. She is scheduled for cholecystectomy today.She denies any abdominal pain. She denies any chest pain or shortness of breath. Objective Data Objective Data Vital Signs: Vital Signs Temp Pulse Resp BP Pulse Ox O2 Del Method 97.6 F L 58 L 16 145/79 H 98 Room Air 09/20/23 11:20 09/20/23 11:20 09/20/23 11:20 09/20/23 11:20 09/20/23 11:20 09/20/23 11:20 Oxygen Delivery Method Room Air Weight: 199 lb 8.293 oz Body Mass Index (BMI) 38.9 Intake & Output: Intake and Output for Last 24 Hours 09/18/23 09/19/23 09/20/23 23:59 23:59 23:59 Intake Total 1310 / 1310 2550.00 / 2850.00 1600 / 1600 Balance 1310 / 1310 2550.00 / 2850.00 1600 / 1600 Lab / Micro Data 09/20/23 05:40 09/20/23 05:40 Labs: Laboratory Results - last 24 hr 09/20/23 05:40: WBC 14.0 H, RBC 3.86 L, Hgb 11.3 L, Hct 34.1 L, MCV 88.3, MCH 29.3, MCHC 33.1, RDW Std Deviation 39.0, RDW Coeff of Allie 12.1, Plt Count 369, MPV 10.4, Sodium 137, Potassium 3.8, Chloride 108 H, Carbon Dioxide 22.0, Anion Gap 7, BUN 7, Creatinine 0.78, Estim Creat Clear Calc 94.19, Est GFR (MDRD) Af Amer 105, Est GFR (MDRD) Non-Af 87, BUN/Creatinine Ratio 9.0 L, Glucose 122 H, Calcium 8.7, Phosphorus 2.5, Magnesium 2.0, Total Bilirubin 0.70, AST 100 H, ALT 156 H, Alkaline Phosphatase 140 H, Total Protein 5.8 L, Albumin 2.6 L, Globulin 3.2, Albumin/Globulin Ratio 0.8 L Radiography Diagnostic Testing: Radiology Impression Endo Retro Cholangiopancreatogram 09/19/23 12:30 IMPRESSION: Biliary stent placement. Electronically Signed: Tao Andrade MD at 13:38 EDT , Physical Exam Const alert, oriented x3, no apparent distress and well nourished; Negative for average body habitus or healthy appearing HEENT head/scalp atraumatic and moist oral mucous membranes HEENT Narrative: Mallampati 3, no thrush Head and Scalp: normocephalic Resp normal respiratory effort, no retractions, no use of accessory muscles and clear to auscultation bilaterally Auscultation: Negative for rales, rhonchi or wheezes Cardio regular rate, regular rhythm, S1 normal heart sound, S2 normal heart sound, no murmurs, no rub, no gallops and no clicks GI normal to inspection, nondistended, normoactive bowel sounds and soft to palpation GI Narrative: Tenderness and specifically right upper quadrant that radiates across her entire upper abdomen Extremity no clubbing, cyanosis or edema Extremity Narrative: Pedal pulses are 2+ Neuro oriented x3, moves all extremities and no focal motor deficits Speech: speech normal Psych affect normal Psych Narrative: Very pleasant, interacts appropriately Assessment & Plan Assessment/Plan (1) Elevated liver enzymes: (2) Cholelithiasis: QUALIFIERS: Cholelithiasis location: gallbladder and bile duct C holecystitis presence: without cholecystitis Biliary obstruction: with biliary obstruction Qualified Code(s): K80.71 - Calculus of gallbladder and bile duct without cholecystitis with obstruction (3) Abdominal pain, acute: PLAN: Plan 43-year-old with no significant past medical history follow-up is here with worsening right upper quadrant pain and discovered to have cholestatic jaundice with hepatitis secondary to obstruction from choledocholithiasis and discovered to have acute cholecystitis. She was started on IV antibiotics. She underwent ERCP with stone removal and stent placement. She is scheduled for cholecystectomy today. If patient does well being that her liver enzymes are decreasing very well then she can be DC'd to home and follow-up as an outpatient for stent removal. Charges/Coding Visit Charges Inpatient E&M: 39807 Subs Hosp L3
--- NOTE | 2023-09-20 07:29 | NURSING ---
this RN gave report to AC at 0650 for her gall bladder removal surgery
--- NOTE | 2023-09-20 10:06 | OP.PCM_ITS ---
Report of Operation Date of Procedure: 09/20/23 Pre-Operative Diagnosis: Choledocholithiasis status post ERCP, cholelithiasis Post-Operative Diagnosis: Same Surgery/Procedure Performed:: Laparoscopic cholecystectomy Surgeon: Asia Galaviz Type of Anesthesia: General/Supplemental Anesthesiologist: Gregory Moran Special Medications: Zosyn 3.375 g IV every 8 hours on the floor Specimen's removed: Gallbladder and stones Estimated Blood Loss (mL): 50 cc Description of Procedure: Indications: this is a 43 year-old female who developed abdominal pain/nausea/vomiting and on workup was found to have choledocholithiasis status post ERCP and cholelithiasis. Laparoscopic cholecystectomy was elected. Description procedure: The patient was placed on operating table in supine position. A timeout was completed verifying correct patient, procedure, site, position and special equipment prior to beginning procedure. General Anesthesia was induced. The abdomen was prepped and draped in usual sterile fashion. An incision was made in the natural skin line above the umbilicus. The fascia was elevated and incised. The peritoneum was elevated and incised. Entry into the peritoneum was confirmed visually and no bowel was noted in the vicinity of the incision. Parker trocar was placed. The abdomen was insufflated with carbon dioxide to a pressure of 12-15 mmHg. Patient tolerated insufflation well. The laparoscope was then inserted and abdomen inspected. No injuries from initial trocar placement were noted. Additional trochars were then inserted in the following locations 5 mm trocar in the epigastrium and 2 more 5 mm trochars along the right costal margin. The abdomen was inspected no abnormalities were found. The table is placed in reverse Trendelenburg position with the right side up. The dome of the gallbladder was grasped with atraumatic grasper passed through the lateral port and retracted over the dome of the liver. Infundibulum was then grasped with atraumatic grasper through the midclavicular port and retracted to the right lower quadrant. This maneuver exposed Calot's triangle. The peritoneum overlying the gallbladder infundibulum was then incised and cystic duct and artery identified and circumferentially dissected. The cystic duct and artery were then doubly clipped and divided close to the gallbladder. The gallbladder then dissected from its peritoneal attachments by electrocautery. There is noted to be a small vessel coursing along the ga llbladder fossa to the fundus of the gallbladder which additional clips as well as the metal 5mm clips were placed. Hemostasis was checked and the gallbladder and contained stones were removed using the endoscopic retrieval bag through the umbilical port. The gallbladder is passed off table as specimen. The gallbladder fossa was irrigated with saline and hemostasis obtained. There is no evidence of bleeding from the gallbladder fossa or cystic artery leakage of bile from the cystic duct stump. Secondary trochars removed under direct vision. No bleeding was noted the trocar sites. The laparoscope was withdrawn and umbilical trocar removed. The abdomen was allowed to collapse. The fascia of the 12 mm trocar was closed with a [id number] 0 Vicryl suture. The skin was closed with sutures of 4-0 Monocryl and Steri-Strips. The patient was extubated. The patient tolerated procedure well and was taken to the postanesthesia care unit in stable condition. Complications none
[2023-09-20] MEDS: Bupivacaine Mpf 0.5% 30 ML VIAL (10:10)
[2023-09-20] MEDS: 0.9% Normal Saline (1000mL) 1,000 ML 15 ML IV (10:39)
--- NOTE | 2023-09-20 11:15 | DCINST_ITS ---
Discharge Instructions Diet Discharge Diet: Light diet - advance as tolerated Activity Discharge Activity: May Not Drive (while taking narcotic pain medications.) May shower in (days): 1 Lifting Restrictions: no lifting >20 lbs x 2 wks, no strenuous exercise for 4 wks Dressing / Incision Call your doctor if your incision/area has: Continuous Slow Oozing, Sudden Increased Bleeding, Increased Pain/ Swelling, Increased Redness, Foul Smelling Discharge and Swelling at the incision site Call your doctor if you observe: Fever of 101 or Higher Remove Dressing in: 2 days Cleanse incision/area with: Soap & Water Additional Dressing/Incision Instructions:: Steri-Strips will fall off in 7 to 10 days, if they do not fall off okay to remove after 10 days. Follow Up Care Please Follow Up With: Asia Galaviz MD When: Call the office for a follow-up appointment 2 weeks; after 5 PM and on the weekends call [phone] with any concerns. Test Results: Test results from this visit will be discussed in further detail at your follow- up appointment, if applicable. Discharge Plan Admission Admit Date/Time: 09/19/23 11:47 Attending Provider: Ibeth Bains Primary Care Provider: Durga Cannon Consulting Providers: Asia Galaviz; Ferny Sorenson Discharge Orders/Prescriptions Prescriptions: New tramadol 50 mg tablet 50 mg PO Q6H PRN (Reason: pain) Qty: 14 0RF No Action escitalopram oxalate 20 mg tablet 20 mg PO DAILY drospirenone-e.estradiol-lm.FA 3-0.02-0.451 mg (24) (4) tablet 1 tab PO DAILY Referrals / Follow Up: Durga Cannon MD [Primary Care Provider] -
--- NOTE | 2023-09-20 11:40 | CASEMGMT ---
YULI POTTER Assessment: Face to Face with pt for initial transition planning/care coordination assessment. RN TARIQ introduced self and role at [facility], pt voices understanding and consents to assessment. Pt lying in bed in no distress. Pt is A&O x4 and answers all questions appropriately at this time. Care providers, pharmacy, and demographics verified/updated. Admitting Dx: Bilary Colic PCP: Kassandra Specialists: Ayan, orthopedic surgeon Preferred Pharmacy: [facility] Insurance: [employer] Prescription Benefit: yes NOK:Bhavna - daughter Living Arrangements: Pt lives with boyfriend in a studio apt with 5 steps and handrails to enter. Pt states I with ADLs and IADLs. Transportation: Pt drives self and denies concerns with transportation. DME: Denies HHC/SNF: Denies Hx of. Pt states no concerns with going home at time of dc. Pt states no further concerns/needs. CM to follow. Advised pt to ask CM if any further question/concerns/needs arise, voices understanding. Pt Goal: Home Plan: Home no needs Vale ROLDAN CM
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
[2023-09-20] MEDS: Acetaminophen 325 MG Tablet 650 MG PO ×2 (14:37→20:45)
[2023-09-20] MEDS: traMADol 50 MG Tablet PO ×2 (14:37→20:45)
[2023-09-20] MEDS: Escitalopram Oxalate 20 MG Tablet PO (20:46)
[2023-09-21 03:50] VITALS: BP 126/89; PULSE 70; RESP 18; TEMP 36.8; O2SAT 98
[2023-09-21 06:09] LABS: Absolute Lymphocyte Count 4.51 X10^3/uL (0.83-4.51); Absolute Neutrophil Count 8.8 X10^3/uL (2.0-7.7); Basophil# 0.07 X10^3/uL; Basophil% 0.5 % (0-1); Eosinophil# 0.13 X10^3/uL; Eosinophils% 0.9 % (0-5); Hematocrit 35.7 % (37-47); Hemoglobin 11.5 g/dL (12.0-15.0); Lymphocyte # 4.51 X10^3/ul (0.83-4.51); Lymphocyte % 31.3 % (19-41); Mean Corp Hgb Conc 32.2 g/dL (32-36); Mean Corpuscular Hgb 29.5 pg (27.0-32.0); Mean Corpuscular Volume 91.5 fL (81-99); Mean Platelet Vol. 10.4 fl (6.2-12.0); Monocyte# 0.88 X10^3/uL; Monocyte% 6.1 % (0-10); NRBC Flagged by Analyzer 0 % (0-5); Neutrophil # 8.76 X10^3/uL (2.7-7.7); Neutrophil % 60.7 % (47-70); Platelet Count 389 K/mm3 (150-450); RBC Distribution Width CV 12.9 % (11.6-14.6); RBC Distribution Width SD 42.6 fl (35.1-43.9); White Blood Count 14.4 K/mm3 (4.4-11.0)
[2023-09-21 06:34] LABS: AST(SGOT) 77 U/L (15-37); Alanine Aminotransfer ALT/SGPT 178 U/L (13-56); Albumin, Serum 2.8 g/dL (3.2-5.0); Alkaline Phosphatase 122 U/L (45-117); Anion Gap 7 (5-15); BUN 10 mg/dL (7-18); BUN/Creat Ratio 12.7 RATIO (10-20); Bilirubin, Direct 0.31 mg/dL (0.00-0.30); Calcium,Total 8.8 mg/dL (8.5-10.1); Chloride 107 mmol/L (98-107); Creatinine, Serum 0.79 mg/dL (0.55-1.02); EST Glomerular Filtration Rate 85 mL/min (>60); Est Glom Filt Rate - Afr Amer 102 mL/min (>60); Estimated Creatinine Clearance 92.99 ml/min; Globulin 3.3 g/dL (2.2-4.2); Glucose 120 mg/dL (74-106); Potassium 3.6 mmol/L (3.5-5.1); Protein, Total 6.1 g/dL (6.4-8.2); Sodium Level 138 mmol/L (136-145)
--- NOTE | 2023-09-21 07:21 | PN.SURG_ITS ---
Subjective Subjective Patient has not had pain meds since last night. Only has minor pain at incisions. Patient tolerated diet yesterday. Objective Data Objective Data Vital Signs: Vital Signs Temp Pulse Resp BP Pulse Ox O2 Del Method 98.2 F 70 18 126/89 H 98 Room Air 09/21/23 03:50 09/21/23 03:50 09/21/23 03:50 09/21/23 03:50 09/21/23 03:50 09/21/23 03:50 Oxygen Delivery Method Room Air Weight: 199 lb 8.293 oz Body Mass Index (BMI) 38.9 Intake & Output: Intake and Output for Last 24 Hours 09/19/23 09/20/23 09/21/23 23:59 23:59 23:59 Intake Total 2550.00 / 2850.00 4250.00 / 4250.00 Balance 2550.00 / 2850.00 4250.00 / 4250.00 Lab / Micro Data 09/21/23 05:44 09/21/23 05:44 Labs: Laboratory Results - last 24 hr 09/21/23 05:44: WBC 14.4 H, RBC 3.90 L, Hgb 11.5 L, Hct 35.7 L, MCV 91.5, MCH 29.5, MCHC 32.2, RDW Std Deviation 42.6, RDW Coeff of Allie 12.9, Plt Count 389, MPV 10.4, Immature Gran % (Auto) 0.500, Neut % (Auto) 60.7, Lymph % (Auto) 31.3, [place] % (Auto) 6.1, Eos % (Auto) 0.9, Baso % (Auto) 0.5, Absolute Neuts (auto) 8.8 H, Absolute Lymphs (auto) 4.51, Nucleated RBC % 0, Sodium 138, Potassium 3.6, Chloride 107, Carbon Dioxide 24.0, Anion Gap 7, BUN 10, Creatinine 0.79, Estim Creat Clear Calc 92.99, Est GFR (MDRD) Af Amer 102, Est GFR (MDRD) Non-Af 85, BUN/Creatinine Ratio 12.7, Glucose 120 H, Calcium 8.8, Total Bilirubin 0.50, Direct Bilirubin 0.31 H, AST 77 H, ALT 178 H, Alkaline Phosphatase 122 H, Total Protein 6.1 L, Albumin 2.8 L, Globulin 3.3 Physical Exam Resp normal respiratory effort Cardio regular rate GI GI Narrative: Abdomen: Soft, nondistended, tender near incision's dressed clean dry and intact, no peritoneal signs Assessment & Plan Assessment/Plan (1) S/P laparoscopic cholecystectomy: (2) S/P ERCP: PLAN: Plan Patient is tolerating diet, pain controlled. Hemoglobin stable. Elevated LFTs resolving. Okay to DC home from surgery standpoint. Asia Galaviz M.D. Pager: [phone] [facility] [address] [place] [address], [address] [place] [address] Office: [phone]
--- NOTE | 2023-09-21 08:24 | DCINST_ITS ---
Discharge Instructions Diet Discharge Diet: Light diet - advance as tolerated Activity Discharge Activity: May Not Drive (While on narcotics) May shower in (days): 1 Dressing / Incision Call your doctor if your incision/area has: Continuous Slow Oozing, Sudden Increased Bleeding, Increased Pain/ Swelling, Increased Redness, Foul Smelling Discharge and Swelling at the incision site Call your doctor if you observe: Fever of 101 or Higher Cleanse incision/area with: Soap & Water Additional Dressing/Incision Instructions:: Steri-Strips will fall off in 7 to 10 days, if they do not fall off okay to remove after 10 days. Follow Up Care Please Follow Up With: Asia Galaviz MD Test Results: Test results from this visit will be discussed in further detail at your follow- up appointment, if applicable. Discharge Plan Admission Admit Date/Time: 09/19/23 11:47 Attending Provider: Kye Ayala Primary Care Provider: Durga Cannon Consulting Providers: Asia Galaviz; Ferny Sorenson; Ibeth Bains Discharge Orders/Prescriptions Prescriptions: New tramadol 50 mg tablet 50 mg PO Q6H PRN (Reason: pain) Qty: 14 0RF Continued escitalopram oxalate 20 mg tablet 20 mg PO DAILY drospirenone-e.estradiol-lm.FA 3-0.02-0.451 mg (24) (4) tablet 1 tab PO DAILY Referrals / Follow Up: Durga Cannon MD [Primary Care Provider] - Within 1 Week Galindo Sy DO [Med Staff - Active Staff] - Within 3 Months Asia Galaviz MD [Med Staff - Active Staff] - Within 2 Weeks Disposition Disposition (needs filled in before D/C Order can be placed): Home, Self Care
[2023-09-21 08:45] VITALS: BP 119/70; PULSE 65; RESP 16; TEMP 36.3; O2SAT 98
--- NOTE | 2023-09-21 09:06 | DS.PCM_ITS ---
Providers Date of Admission: 09/19/23 Primary Care Physician: Dr. Durga Cannon MD Consultations 09/18/23 17:28 Consult: Gastroenterology Routine Consulting Provider: [facility] Reason for Consult: elevated bilirubin EMERGENT Consult: No Notified: Yes Date Notified: 09/18/23 Time Notified: 16:25 Method of Notification: ED Physician Initiated Consult: General Surgery Routine Consulting Provider: Asia Galaviz Reason for Consult: gallstones EMERGENT Consult: No Notified: Yes Date Notified: 09/18/23 Time Notified: 16:26 Method of Notification: via Ed Reason For Visit: BILARY COLIC Diagnosis Discharge Diagnosis (1) S/P laparoscopic cholecystectomy: Status: Acute Code(s): Z90.49 - Acquired absence of other specified parts of digestive tract (2) S/P ERCP: Status: Acute Code(s): Z98.890 - Other specified postprocedural states Medications at Discharge Home Medications drospiren-e.estrad-l.mefol 3 mg-0.02 mg-0.451 mg(24)/0.451 mg(4)tablet 1 tab PO DAILY 09/04/23 escitalopram oxalate 20 mg tablet 20 mg PO DAILY 09/04/23 tramadol 50 mg tablet 50 mg PO Q6H PRN pain #14 tabs 09/20/23 Hospital Course Operations cholecystecomy and ERCP Procedures None Summary of Care Provided Minutes Spent on Discharge: 38 Hospital Course: Per HPI: ARLEY ROY, is a 43 F with a significant history of PCOS; marijuana abuse and depression who presents to emergency department with 3-day history of persistent nausea and vomiting. Reportedly she has not been able to keep any food down. Associated of her symptoms is epigastric pain that stretches from the upper parts of her abdomen to her back back in a bandlike pattern. She rated pain as 8 out of 10. The pain improves with pressing the pillow against it. The pain worsens with food. A day before presentation she had 2 slices of pizza that worsened her pain. After vomiting she had some relief from her pain. She denied fever. She reports chills. Last time her bowels move was the day before presentation. At the ED imaging showed sludge in the gallbladder. Emergency department physician gave patient's Zosyn and discussed case with general surgery and GI who will follow the patient's. Hospital Course: 1. Acute cholecystitis with choledocholithiasis status postcholecystectomy on 09/20/2023 and ERCP with temporary stent placement on 09/19/2023? 43-year-old female presented to the hospital with persistent nausea and vomiting as well as abdominal pain. She was found to have acute cholecystitis with likely choledocholithiasis, she had a ERCP on 09/19/2023. She tolerated both procedures well and is tolerating a diet. General surgery felt that she be stable for discharge today and I agree. No significant pain with food. She does have a slight leukocytosis but in the absence of fever this is likely reactive. I discussed with her the plan for discharge today and she expressed understanding of the risk and benefits of going home and would like to go home today. She will need to follow-up with general surgery as well as GI as an outpatient for retrieval of her temporary biliary stent. 2. History of migraines, anxiety, depression, history of PCOS all chronic medical conditions which complicate her care. Her home medications were continued where appropriate Physical Exam Narrative General: Alert, Oriented x3, Cooperative, No apparent distress HEENT: Atraumatic, PERRLA, EOMI, Normocephalic Oral: Moist Mucosa Neck: Supple, No JVD Lungs: Diminished, Normal air movement, No rhonchi, No wheeze, No rales Cardiovascular: Regular rate, Regular Rhythm, Normal S1, Normal S2, No murmurs Abdomen: Soft, mild tender around incisions, Non-Distended, No Hepato- splenomegaly Extremities: No edema, Capillary Refill Less than 3 Seconds Skin: Incision CDI Musculoskeletal: No Tenderness to Palpation of Joints or Extremities Neurological: No focal neurological deficits, Motor Exam 5/5 strength throughout, Sensory exam intact to light touch and pain Psych/Mental Status: Normal Affect, Appropriate Weight / BMI Weight Weight: 199 lb 8.293 oz Body Mass Index (BMI) 38.9 ABG / Lab / Microbiology Data 09/21/23 05:44 09/21/23 05:44 Laboratory: Laboratory Results - last 24 hr 09/21/23 05:44: WBC 14.4 H, RBC 3.90 L, Hgb 11.5 L, Hct 35.7 L, MCV 91.5, MCH 29.5, MCHC 32.2, RDW Std Deviation 42.6, RDW Coeff of Allie 12.9, Plt Count 389, MPV 10.4, Immature Gran % (Auto) 0.500, Neut % (Auto) 60.7, Lymph % (Auto) 31.3, [place] % (Auto) 6.1, Eos % (Auto) 0.9, Baso % (Auto) 0.5, Absolute Neuts (auto) 8.8 H, Absolute Lymphs (auto) 4.51, Nucleated RBC % 0, Sodium 138, Potassium 3.6, Chloride 107, Carbon Dioxide 24.0, Anion Gap 7, BUN 10, Creatinine 0.79, Estim Creat Clear Calc 92.99, Est GFR (MDRD) Af Amer 102, Est GFR (MDRD) Non-Af 85, BUN/Creatinine Ratio 12.7, Glucose 120 H, Calcium 8.8, Total Bilirubin 0.50, Direct Bilirubin 0.31 H, AST 77 H, ALT 178 H, Alkaline Phosphatase 122 H, Total Protein 6.1 L, Albumin 2.8 L, Globulin 3.3 D/C Instructions Discharge Diet: Light diet - advance as tolerated May shower in (days): 1 Call your doctor if your incision/area has: Continuous Slow Oozing, Sudden Increased Bleeding, Increased Pain/ Swelling, Increased Redness, Foul Smelling Discharge and Swelling at the incision site Call your doctor if you observe: Fever of 101 or Higher Cleanse incision/area with: Soap & Water Additional Dressing/Incision Instructions: Steri-Strips will fall off in 7 to 10 days, if they do not fall off okay to remove after 10 days. Please Follow Up With: Asia Galaviz MD When: Call the office for a follow-up appointment 2 weeks; after 5 PM and on the weekends call [phone] with any concerns. Meaningful Use Info Meaningful Use Meaningful Use Diagnoses (Choose all that apply): None applicable Ischemic Stroke Statin Dosing Therapy Reference: STATIN DOSE THERAPY REFERENCE: * Patients > 75 years receive moderate or high dose statin therapy. * Patients 75 years or YOUNGER should receive HIGH intensity statin dose unless contraindicated. You will be required to document reason for non-treatment if statin daily dose does not meet guidelines. HIGH DOSE STATIN THERAPY DAILY Atorvastatin > than or = to 40 mg Rosuvastatin > than or = to 20 mg Amlodipine + Atorvastatin > than or = to 2.5/40 mg Ezetimibe + Simvastatin 10/80 mg Simvastatin 80mg Discharge Plan Admission Admit Date/Time: 09/19/23 11:47 Attending Provider: Kye Ayala Primary Care Provider: Durga Cannon Consulting Providers: Asia Galaviz; Ferny Sorenson; Ibeth Bains Discharge Orders/Prescriptions Prescriptions: New tramadol 50 mg tablet 50 mg PO Q6H PRN (Reason: pain) Qty: 14 0RF Continued escitalopram oxalate 20 mg tablet 20 mg PO DAILY drospirenone-e.estradiol-lm.FA 3-0.02-0.451 mg (24) (4) tablet 1 tab PO DAILY Referrals / Follow Up: Durga Cannon MD [Primary Care Provider] - Within 1 Week Galindo Sy DO [Med Staff - Active Staff] - Within 3 Months Asia Galaviz MD [Med Staff - Active Staff] - Within 2 Weeks Disposition Disposition (needs filled in before D/C Order can be placed): Home, Self Care Charges/Coding Visit Charges Inpatient E&M: 30030 Disch Hosp >30min
== END 2023-09-21 09:00 | disposition home or self-care (01) | DRG 263 ==
LOC: ED 16:15 → MS3 17:02
PROVIDERS: Internal Medicine; Internal Medicine Gastroenterology; Surgery; Admitting Provider Hospitalist; Emergency Provider Emergency Medicine; PCP Family Medicine; Visit Provider Family Medicine
PROC: 0FC98ZZ Extirpation of Matter from Common Bile Duct, Via Natural or Artificial Opening Endoscopic (ICD-10-PCS; CPT 43260; principal; 2023-09-19 11:55)
PROC: 0FT44ZZ Resection of Gallbladder, Percutaneous Endoscopic Approach (ICD-10-PCS; CPT 47610; principal; 2023-09-20 08:25)
DX: K80.43 Calculus of bile duct with acute cholecystitis with obstruction (principal); E66.9 Obesity, unspecified; F12.10 Cannabis abuse, uncomplicated; F32.A Depression, unspecified; F41.9 Anxiety disorder, unspecified; F17.290 Nicotine dependence, other tobacco product, uncomplicated; Z68.39 Body mass index [BMI] 39.0-39.9, adult; R74.8 Abnormal levels of other serum enzymes; Z79.899 Other long term (current) drug therapy; Z90.49 Acquired absence of other specified parts of digestive tract
CPT/HCPCS: 36415; 74330; 76000; 76705; 80048; 80053; 80076; 83690; 83735; 84100; 84703; 85025; 85027; 88304; 93005; 97802; 99283; 99406; J7030; J7050; J7120; A4216; J2405; J3490

== ENCOUNTER 2023-12-10 13:26 | Day surgery (SDC) | payer MEDICAID, SELFPAY ==
[2023-12-10] VITALS (9 sets, daily range): BP systolic 107–128; BP diastolic 66–82; PULSE 59–67; RESP 16–18; TEMP 36.1–36.6; O2SAT 95–100; BMI 30.2
--- NOTE | 2023-12-10 13:42 | EKG12_ITS ---
Test Reason : PREOP Blood Pressure : / mmHG Vent. Rate : 063 BPM Atrial Rate : 063 BPM P-R Int : 128 ms QRS Dur : 092 ms QT Int : 424 ms P-R-T Axes : 061 036 012 degrees QTc Int : 433 ms Normal sinus rhythm Normal ECG When compared with ECG of 19-SEP-2023 05:37, No significant change was found Confirmed by Jose M aPrrish ([id number]), industrial editor AMARILYS RIVERA ([id number]) on 12/20/2023 6:41:58 AM Referred By: Galindo Friend Confirmed By:Jose M Parrish
[2023-12-10] MEDS: Lactated Ringers 1,000 ML 15 ML IV (13:53)
--- NOTE | 2023-12-10 14:29 | PRE.ANES_ITS ---
ASA Classification* ASA Classification ASA Classification: 2 Assessment & Plan Anesthesia* Anesthesia Assessment Anesthesia Assessment: Discussed sedation and/or anesthesia options, risks, benefits, and alternatives with patient/parents/legal guardian/POA. Questions invited. The patient/parents/legal guardian/POA seems to understand and agrees to proceed with anesthesia plan. Reviewed the physical assessment, medical history, allergy history and patient home medications list prior to surgery/procedure/anesthetic and documented any changes. Performed airway and anesthesia risk assessments. Anesthesia Type Anesthesia Type: MAC History Source History Obtained from:: Patient and Chart Anesthesia Focused Assessment* Temperature: 97.9 F Pulse Rate: 66 Blood Pressure: 123/66 Respiratory Rate: 18 Pulse Ox: 100 Oxygen Delivery Method: Room Air Airway Assessment Mouth opens: >3 cm Mallampati Score: III Teeth Condition: Chipped/Broken (Chipped front incisor #8) Neck Range of motion (ROM): Full ROM Focused Labs Anesthesia Preop lab: CBC WBC 14.4 K/mm3 (4.4-11.0) H 09/21/23 05:44 RBC 3.90 M/mm3 (4.2-5.4) L 09/21/23 05:44 Hgb 11.5 g/dL (12.0-15.0) L 09/21/23 05:44 Hct 35.7 % (37-47) L 09/21/23 05:44 Plt Count 389 K/mm3 (150-450) 09/21/23 05:44 CHEMISTRY Potassium 3.6 mmol/L (3.5-5.1) 09/21/23 05:44 Sodium 138 mmol/L (136-145) 09/21/23 05:44 Magnesium 2.0 mg/dL (1.6-2.6) 09/20/23 05:40 Phosphorus 2.5 mg/dL (2.5-4.9) 09/20/23 05:40 BUN 10 mg/dL (7-18) 09/21/23 05:44 Creatinine 0.79 mg/dL (0.55-1.02) 09/21/23 05:44 Glucose 120 mg/dL (74-106) H 09/21/23 05:44 COAG Urine Test Negative Negative 10/19/12 19:17 Pre-Assessment Diagnosis/Proposed Procedure Planned Operative Procedure(s): ERCP Anesthesia History Anesthesia History - crowning inspector: Anesthesia History - crowning inspector Hx Hospitalization Yes: ERCP 12/05/23 10:58 Any Problems With Anesthesia No 12/05/23 10:58 Cholinesterase deficiency No 12/05/23 10:58 You/Your Family Experience No 12/05/23 10:58 fever (hyperthermia) with Relationship Recent Exposure to Contagious No 12/10/23 13:53 Disease Does patient have nerve No 12/05/23 10:58 stimulator Patient instructed to have device shut off --Does patient have Pacemaker No 12/10/23 13:53 or ICD? When Was Last Pacemaker Check QUESTION #4 FULL TEXT: You/Your Family Experience fever (hyperthermia) with Anesthesia Last Oral Intake Last Oral intake: Last Oral Intake NPO since 00:00 12/10/23 13:53 Meds taken in AM with sips of No 12/10/23 13:53 water? Meds patient instructed to take am of surgery PONV PONV - crowning inspector: PONV - crowning inspector Female No 12/05/23 10:58 HX of Motion Sickness No 12/05/23 10:58 HX of N/V After Surgery No 12/05/23 10:58 Non-Smoker Yes 12/05/23 10:58 Duration of Surgery greater No 12/05/23 10:58 than 60 minutes Number of Risk Factors 1 12/05/23 10:58 PONV Score Low Risk 12/05/23 10:58 Height & Weight Height & Weight: Anesthesia: Height & Weight Height 5 ft 12/10/23 13:53 Weight: 70.307 kg 12/10/23 13:53 Body Mass Index (BMI) 30.2 12/10/23 13:53 Respiratory Assessment Respiratory Assessment - crowning inspector: Respiratory Tract Infection Hx - crowning inspector Hx Respiratory Tract Infection No 12/05/23 10:58 STOP Sleep Apnea STOP Sleep Apnea - crowning inspector: STOP Sleep Apnea - crowning inspector Hx Hypertension No 12/05/23 10:58 Hx Sleep Apnea No 12/05/23 10:58 CPAP BIPAP Do you snore loudly (louder No 12/05/23 10:58 than talking or can be heard Do you often feel tired/ No 12/05/23 10:58 fatigued/ sleepy during daytime? Has anyone observed you stop No 12/05/23 10:58 breathing during sleep? STOP Results Negative 12/05/23 10:58 QUESTION #5 FULL TEXT : Do you snore loudly (louder than talking or can be heard through closed doors)? Tobacco Use History Tobacco Use History - crowning inspector: Tobacco Use History - crowning inspector Tobacco Use Smoking Status Current every day smoker 12/05/23 10:58 Hx Tobacco Use Yes 12/05/23 10:58 Years Smoking Packs Smoked per Day Smoking Cessation Date was within the last 15 years Hx Smoking Cessation Date Hx Smoking Cessation Counseling Any additional information?: Yes Smoking Status: Current every day smoker (Patient did not smoke today.) Hematologic Medial History Hematologic Hx - crowning inspector: Hematologic Medical Hx - carpenter apprentice Hx of Blood Transfusion No 12/05/23 10:58 Hx of Transfusion in last 3 No 12/05/23 10:58 Months Date of Last Transfusion (if within last 3 months) Ever experience any problems No 12/05/23 10:58 with transfusion(s)? Specify any problems Hx of Preganancy in last 3 N/A 12/05/23 10:58 Months Nurse Filling Out Transfusion NBUCHER 12/05/23 10:58 & Questions: Date: 12/05/23 12/05/23 10:58 Time: 11:00 12/05/23 10:58 Patient unable to answer at this time (ie. confused, unrespo /Reproduction History /Reproductive History - crowning inspector: /Reproductive Hx- crowning inspector Hx Now No 12/05/23 10:58 Gestational Age (in weeks): EDC: Hx Hx Para Hx Section SAB No 12/05/23 10:58 Active Medications Active Medications: Current Medications Generic Name Dose Route Start Last Admin Trade Name Freq PRN Reason Stop Dose Admin Lactated Ringer's 1,000 mls @ 15 mls/hr 12/10/23 13:45 12/10/23 13:53 IV 15 mls/hr .Q48H JOHN Administration PFSH Medical History Restless legs Former smoker Anxiety Migraines UTI (urinary tract infection) PCOS (polycystic ovarian syndrome) Spinal stenosis Home Medications ?Medication ?Instructions ?Recorded ?Last Taken ?Type drospiren-e.estrad-l.mefol 3 1 tab PO DAILY 09/04/23 12/09/23 History mg-0.02 mg-0.451 mg(24)/0.451 mg(4)tablet escitalopram oxalate 20 mg tablet 20 mg PO DAILY 09/04/23 12/09/23 History Allergy/AdvReac Type Severity Reaction Status Date / Time latex Allergy Hives Verified 12/10/23 13:51 nicotine (From [facility]) Allergy Hives Verified 12/10/23 13:51 Surgical History S/P ERCP S/P laparoscopic cholecystectomy Hx of tubal ligation History of appendectomy History of tonsillectomy and adenoidectomy Social History household members: spouse Smoking Status: Current every day smoker tobacco type: e-cigarettes substance use type: does not use Review of Systems (Anesthesia) ROS Narrative System reviewed and no additional complaints, except as documented.
--- NOTE | 2023-12-10 15:23 | PCM.HP.STD ---
HPI - General General Date of Admission: 12/10/23 Date of Service: 12/10/23 Chief Complaint: Stent removal HPI Narrative ARLEY ROY, is a 43 F who presents for stent removal. She is status post laparoscopic cholecystectomy and ERCP due to choledocholithiasis and cholelithiasis. Patient has been tolerating diet and having bowel function. Patient states she did have some diarrhea with some greasy/spicy tacos that were homemade initially after surgery. Otherwise has been having normal bowel movements. FOR[facility]LY [facility] Medical History Restless legs Former smoker Anxiety Migraines UTI (urinary tract infection) PCOS (polycystic ovarian syndrome) Spinal stenosis Home Medications ?Medication ?Instructions ?Recorded ?Last Taken ?Type drospiren-e.estrad-l.mefol 3 1 tab PO DAILY 09/04/23 12/09/23 History mg-0.02 mg-0.451 mg(24)/0.451 mg(4)tablet escitalopram oxalate 20 mg tablet 20 mg PO DAILY 09/04/23 12/09/23 History Allergy/AdvReac Type Severity Reaction Status Date / Time latex Allergy Hives Verified 12/10/23 13:51 nicotine (From [facility]) Allergy Hives Verified 12/10/23 13:51 Surgical History S/P ERCP S/P laparoscopic cholecystectomy Hx of tubal ligation History of appendectomy History of tonsillectomy and adenoidectomy Social History household members: spouse Smoking Status: Current every day smoker (Patient did not smoke today.) tobacco type: e-cigarettes substance use type: does not use ROS Constitutional Constitutional: Reports anorexia Eyes Eyes: Denies loss of central vision ENT HEENT: Denies dysphagia Cardiovascular Cardiovascular: Denies chest pain Respiratory/Chest Respiratory/Chest: Denies productive cough Gastrointestinal Gastrointestinal: Reports abdominal pain, nausea and vomiting Genitourinary Genitourinary: Denies dysuria Musculoskeletal Musculoskeletal: Denies joint swelling Integumentary Integumentary: Denies rash Neurologic Neurologic: Denies focal weakness Psychiatric Psychiatric: Denies depression Endocrine Endocrinology: Denies palpitations Hematologic/Lymphatic Hematologic/Lymphatic: Denies easy bleeding Vital Signs Vital Signs Vital Signs: 12/10/23 13:53 12/10/23 13:53 12/10/23 14:36 Temperature 97.9 F 97.9 F Temperature Source Temporal Pulse Rate 66 66 Respiratory Rate 18 18 Respiratory Pattern Normal Blood Pressure 123/66 H 123/66 H Blood Pressure Mean 85 Blood Pressure Source Monitor Blood Pressure Position Semi-Fowlers Blood Pressure Location Right Arm Pulse Ox 100 100 Oxygen Delivery Method Room Air Room Air Weight Weight: 155 lb Body Mass Index (BMI) 30.2 Physical Exam Narrative General: Alert, Oriented x3, Cooperative, No apparent distress HEENT: Atraumatic, PERRLA, EOMI, Normocephalic Oral: Moist Mucosa Neck: Supple, No JVD Lungs: Diminished, Normal air movement, No rhonchi, No wheeze, No rales Cardiovascular: Regular rate, Regular Rhythm, Normal S1, Normal S2, No murmurs Abdomen: Soft, mild tender around incisions, Non-Distended, No Hepato-splenomegaly Extremities: No edema, Capillary Refill Less than 3 Seconds Skin: Incision CDI Musculoskeletal: No Tenderness to Palpation of Joints or Extremities Neurological: No focal neurological deficits, Motor Exam 5/5 strength throughout, Sensory exam intact to light touch and pain Psych/Mental Status: Normal Affect, Appropriate Assessment & Plan Assessment/Plan (1) Elevated liver enzymes: (2) S/P ERCP: (3) S/P laparoscopic cholecystectomy: PLAN: Plan 43-year-old female presents status post laparoscopic cholecystectomy and ERCP due to choledocholithiasis and cholelithiasis. She will undergo ERCP with stent removal. She was explained alternatives, risk, benefits including outstanding bleeding, infection, sepsis, perforation, need for emergent urgent . She we will have an ASA of 3.
--- NOTE | 2023-12-10 15:52 | RAD_ITS ---
STUDY: ERCP. REASON FOR EXAM: Female, 43 years old. PAIN FLUOROSCOPY TIME (if supplied): ( ) minutes/seconds. 14.41 mCi. 7 images were provided. TECHNIQUE: Fluoroscopic guidance for ERCP. COMPARISON: None. FINDINGS: Filling defects are seen in the distal portion of the common bile duct in keeping with choledocholithiasis. RAD/ERCP Biliary/Pancreas IMPRESSION: Choledocholithiasis. Electronically Signed: Tao Andrade MD at 10:07 EDT ,
--- NOTE | 2023-12-10 16:11 | OP.CCLET_ITS ---
12/10/2023 Durga Cannon Re : ERCP procedure for Marlena Cannon This procedure was performed on Sunday, December 10, 2023. My impressions and recommendations are as follows: Impressions : - The biliary system were moderately dilated, with a stone causing an obstruction. - The patient has had a cholecystectomy. - Choledocholithiasis was found. Complete removal was accomplished by biliary sphincterotomy and balloon extraction. - A pancreatic sphincterotomy was performed. - The ventral pancreatic duct was swept and nothing was found. - A biliary sphincterotomy was performed. - The biliary tree was swept. - One stent was removed from the biliary tree. Recommendations : My findings are described in the full procedure note, which is enclosed. If I can be of further assistance, please feel free to contact me at . Sincerely, Galindo Sy, 12/10/2023 4:10:59 PM This report has been signed electronically.
--- NOTE | 2023-12-10 16:11 | OP.ERCP_ITS ---
Patient Name: Marlena Ley Procedure Date: 12/10/2023 3:23 PM Date of : 1980 Age: 43 Procedure: ERCP Indications: Bile duct stone(s), Stent removal Providers: Galindo Sy DO Medicines: Monitored Anesthesia Care Patient Profile: This is a 43 year old female. Refer to note in patient chart for documentation of history and physical. Patient has symptoms of acute right upper quadrant abdominal pain. She is status post laparoscopic cholecystectomy within the past three months. Complications: No immediate complications. Procedure: Pre-Anesthesia Assessment: - Prior to the procedure, a History and Physical was performed, and patient medications and allergies were reviewed. The patient is competent. The risks and benefits of the procedure and the sedation options and risks were discussed with the patient. All questions were answered and informed consent was obtained. Patient identification and proposed procedure were verified by the physician in the pre-procedure area. Mental Status Examination: alert and oriented. Airway Examination: normal oropharyngeal airway and neck mobility. Respiratory Examination: clear to auscultation. CV Examination: normal. Prophylactic Antibiotics: The patient does not require prophylactic antibiotics. Prior Anticoagulants: The patient has taken no anticoagulant or antiplatelet agents except for NSAID medication. ASA Grade Assessment: II - A patient with mild systemic disease. After reviewing the risks and benefits, the patient was deemed in satisfactory condition to undergo the procedure. The anesthesia plan was to use monitored anesthesia care (MAC). Immediately prior to administration of medications, the patient was re-assessed for adequacy to receive sedatives. The heart rate, respiratory rate, oxygen saturations, blood pressure, adequacy of pulmonary ventilation, and response to care were monitored throughout the procedure. The physical status of the patient was re-assessed after the procedure. After obtaining informed consent, the scope was passed under direct vision. Throughout the procedure, the patient's blood pressure, pulse, and oxygen saturations were monitored continuously. The Duodenoscope was introduced through the mouth, and advanced to the duodenum and used to inject contrast into the bile duct and ventral pancreatic duct. The ERCP was accomplished without difficulty. The patient tolerated the procedure well. Scope In: 3:52:35 PM Scope Out: 4:00:25 PM Total Procedure Duration Time 0 hours 7 minutes 50 seconds Findings: The medical transcriptionist film was normal. The esophagus was successfully intubated under direct vision. The scope was advanced to a normal major papilla in the descending duodenum without detailed examination of the pharynx, larynx and associated structures, and upper GI tract. The upper GI tract was grossly normal. The ventral pancreatic duct was deeply cannulated with the short-nosed traction sphincterotome. Contrast was injected. I personally interpreted the pancreatic duct images. There was brisk flow of contrast through the ducts. Image quality was adequate. Contrast extended to the pancreatic duct. Opacification of the entire pancreatic ductal system was successful. The maximum diameter of the ducts was 2 mm. The entire opacified area was normal. A long 0.025 inch Jagwire was passed into the ventral pancreatic duct. A 5 mm ventral pancreatic sphincterotomy was made with a traction (standard) sphincterotome using ERBE electrocautery. There was no post-sphincterotomy bleeding. To find object(s) the ventral pancreatic duct was swept with a 6 mm balloon starting at the pancreatic duct in the body of the pancreas. Nothing was found. The bile duct was deeply cannulated with the short-nosed traction sphincterotome. Contrast was injected. Opacification of the entire biliary tree except for the cystic duct and gallbladder and entire opacified area was successful. The maximum diameter of the ducts was 10 mm. The lower third of the main bile duct contained one stone, which was 6 mm in diameter. The entire opacified area was moderately dilated, with a stone causing an obstruction. The largest diameter was 12 mm. A cholecystectomy had been performed. A straight Roadrunner wire was passed into the biliary tree. A 5 mm biliary sphincterotomy was made with a traction (standard) sphincterotome using ERBE electrocautery. There was no post-sphincterotomy bleeding. The biliary tree was swept with a 12 mm balloon starting at the bifurcation. All stones were removed. One stent was removed from the biliary tree using a snare. The stent was found to be occluded via the water column test. Impression: - The biliary system were moderately dilated, with a stone causing an obstruction. - The patient has had a cholecystectomy. - Choledocholithiasis was found. Complete removal was accomplished by biliary sphincterotomy and balloon extraction. - A pancreatic sphincterotomy was performed. - The ventral pancreatic duct was swept and nothing was found. - A biliary sphincterotomy was performed. - The biliary tree was swept. - One stent was removed from the biliary tree. Procedure Code(s): --- Professional --- 69528, Endoscopic retrograde cholangiopancreatography (ERCP); with removal of foreign body(s) or stent(s) from biliary/pancreatic duct(s) 94641, Endoscopic retrograde cholangiopancreatography (ERCP); with removal of calculi/debris from biliary/pancreatic duct(s) 60983, Endoscopic retrograde cholangiopancreatography (ERCP); with sphincterotomy/papillotomy 79432, Endoscopic retrograde cholangiopancreatography (ERCP); with sphincterotomy/papillotomy 18991, 26, Endoscopic catheterization of the pancreatic ductal system, radiological supervision and interpretation CPT copyright 2021 [employer]. All rights reserved. The codes documented in this report are preliminary and upon career placement specialist review may be revised to meet current compliance requirements. Galindo Sy DO 12/10/2023 4:10:59 PM This report has been signed electronically. Number of Addenda: 0 Note Initiated On: 12/10/2023 3:23 PM
--- NOTE | 2023-12-10 16:16 | PCM.POST.ANE ---
Anesthesia: Postop Eval I Current Vital Signs Temperature: 97.6 F Pulse Rate: 67 Blood Pressure: 115/79 Respiratory Rate: 16 Pulse Ox: 95 Oxygen Delivery Method: Room Air Assessment Airway patent: Yes Spontaneous unlabored respirations: Yes Mental status: Asleep nausea: No Vomiting: No Anesthesia Complication: No Fluid Hydration Crystalloid volume administer (ml): 800 Total IV fluid infused: 800 Progress Note Anesthesia document: Postop Eval 1 completed: Yes
--- NOTE | 2023-12-10 16:57 | PCM.POSTANE2 ---
Anesthesia Postop Eval I Sum Postop Eval Completion status Anesthesia document: Postop Eval 1 completed: Yes Anesthesia Postop Eval I Summary Anesthesia Postop Eval I Summary: Anesthesia Postop Eval I: Assessment Summary Airway patent Yes 12/10/23 16:17 [email or web address] Spontaneous unlabored Yes 12/10/23 16:17 [email or web address] respirations Mental status Asleep 12/10/23 16:17 [email or web address] nausea No 12/10/23 16:17 [email or web address] Vomiting No 12/10/23 16:17 [email or web address] Anesthesia Postop Eval I: Fluid Summary Crystalloid volume administer 800 12/10/23 16:17 [email or web address] (ml) Colloids volume administered ( ml) Blood Product volume administered (ml) Total IV fluid infused 800 12/10/23 16:17 [email or web address] Anesthesia Postop Eval I: Summary Notes Anesthesia Complication No 12/10/23 16:17 [email or web address] Anesthesia Complication Comment: Post-operative progress note Anesthesia: Postop Eval II Evaluation Mental status: Awake and Calm Pain Level: 0 nausea: No Vomiting: No Complications Anesthesia Complication: No
== END 2023-12-10 17:12 | disposition home or self-care (01) ==
LOC: EN 13:27 → AC 13:29
PROVIDERS: PCP Family Medicine; Referring Provider Internal Medicine Gastroenterology; Visit Provider Internal Medicine Gastroenterology
PROC: (CPT 43260; principal; 2023-12-10 14:25)
DX: Z46.59 Encounter for fitting and adjustment of other gastrointestinal appliance and device (principal); R74.8 Abnormal levels of other serum enzymes; Z90.49 Acquired absence of other specified parts of digestive tract; F17.290 Nicotine dependence, other tobacco product, uncomplicated; Z79.899 Other long term (current) drug therapy; F41.9 Anxiety disorder, unspecified; K80.51 Calculus of bile duct without cholangitis or cholecystitis with obstruction
CPT/HCPCS: 43275; 43262; 43264; 00732; 74330; 76000; 93005; J7120; J2405